=== PATIENT | female | born 1995 | race Caucasian/White ===

== ENCOUNTER → 2019-01-30 | Outpatient (REF) | payer OTHER ==
[2019-01-30 21:01] LABS: CHLAMYDIA DNA AMPLIFICATION NEGATIVE (NEGATIVE); GC DNA AMPLIFICATION NEGATIVE (NEGATIVE)
== END ==
LOC: M SFHCLERA 13:45
PROVIDERS: ATTEND Nurse Practitioner Family
DX: R30.0 Dysuria (principal)

== ENCOUNTER 2020-09-30 07:29 | Inpatient (IN) | payer OTHER ==
[2020-09-30] VITALS (14 sets, daily range): BP systolic 96–133; BP diastolic 50–71
[~2020-09-30] VITALS: Ht 162.6 cm; Wt 76.9 kg
--- OUTSIDE RECORDS SUMMARY | 2020-09-30 07:35 | CCD ---
Author Author [facility] Organization [facility] Address Unknown Phone Unavailable Care Team Providers Care Paid Search Manager Name Role Phone Yessy CALDWELL Unavailable Unavailable Trang PAC, Kenyon Unavailable Unavailable Lorman PAC, Kenyon Unavailable Unavailable Trang PAC, Kenyon Unavailable Unavailable Lorman PAC, Kenyon Unavailable Unavailable Lorman PAC, Kenyon Unavailable Unavailable Lorman PAC, Kenyon Unavailable Unavailable Lorman PAC, Kenyon Unavailable Unavailable Lorman PAC, Kenyon Unavailable Unavailable ABDALLA, W SHWETA PA Unavailable Unavailable ABDALLA, W SHWETA PA Unavailable Unavailable ABDALLA, W SHWETA PA Unavailable Unavailable ABDALLA, W SHWETA PA Unavailable Unavailable ABDALLA, W SHWETA PA Unavailable Unavailable ABDALLA, W SHWETA PA Unavailable Unavailable ABDALLA, W SHWETA PA Unavailable Unavailable ABDALLA, W SHWETA PA Unavailable Unavailable ABDALLA, W SHWETA PA Unavailable Unavailable ABDALLA, W SHWETA PA Unavailable Unavailable ABDALLA, W SHWETA PA Unavailable Unavailable ABDALLA, W SHWETA PA Unavailable Unavailable ABDALLA, W SHWETA PA Unavailable Unavailable ABDALLA, W SHWETA PA Unavailable Unavailable ABDALLA, W SHWETA PA Unavailable Unavailable ABDALLA, W SHWETA PA Unavailable Unavailable ABDALLA, W SHWETA PA Unavailable Unavailable ABDALLA, W SHWETA PA Unavailable Unavailable ABDALLA, W SHWETA PA Unavailable Unavailable ABDALLA, W SHWETA PA Unavailable Unavailable ABDALLA, W SHWETA PA Unavailable Unavailable ABDALLA, W SHWETA PA Unavailable Unavailable ABDALLA, W SHWETA PA Unavailable Unavailable ABDALLA, W SHWETA PA Unavailable Unavailable ADBALLA, W SHWETA PA Unavailable Unavailable ABDALLA, W SHWETA PA Unavailable Unavailable ABDALLA, W SHWETA PA Unavailable Unavailable ABDALLA, W SHWETA PA Unavailable Unavailable ABDALLA, W SHWETA PA Unavailable Unavailable ABDALLA, W SHWETA PA Unavailable Unavailable ABDALLA, W SHWETA PA Unavailable Unavailable ABDALLA, W SHWETA PA Unavailable Unavailable ABDALLA, W SHWETA PA Unavailable Unavailable ABDALLA, W SHWETA PA Unavailable Unavailable ABDALLA, W SHWETA PA Unavailable Unavailable ABDALLA, W SHWETA PA Unavailable Unavailable ABDALLA, W SHWETA PA Unavailable Unavailable ABDALLA, W SHWETA PA Unavailable Unavailable ABDALLA, W SHWETA PA Unavailable Unavailable ABDALLA, W SHWETA PA Unavailable Unavailable ABDALLA, W SHWETA PA Unavailable Unavailable ABDALLA, W SHWETA PA Unavailable Unavailable ABDALLA, W SHWETA PA Unavailable Unavailable ABDALLA, W SHWETA PA Unavailable Unavailable ABDALLA, W SHWETA PA Unavailable Unavailable ABDALLA, W SHWETA PA Unavailable Unavailable NONE SALES REPRESENTATIVE BUSINESS COURSES, MD ON NONE Unavailable Unavailable UNKNOWN, CLINIC MICHAELA Unavailable Unavailable MD DEMETRIO HAWTHORNE DO Unavailable Unavailable VENERUS, Viki CORDOVA MD Unavailable Unavailable VENERUS, Viki CORDOVA MD Unavailable Unavailable VENERUS, Viki CORDOVA MD Unavailable Unavailable VENERUS, Viki CORDOVA MD Unavailable Unavailable VENERUS, Viki CORDOVA MD Unavailable Unavailable VENERUS, Viki CORDOVA MD Unavailable Unavailable VENERUS, Viki CORDOVA MD Unavailable Unavailable VENERUS, Viki CORDOVA MD Unavailable Unavailable VENERUS, Viki CORDOVA MD Unavailable Unavailable Re-disclosure Warning The records that you are about to access may contain information from federally-assisted alcohol or drug abuse programs. If such information is present, then the following federally mandated warning applies: This information has been disclosed to you from records protected by federal confidentiality rules (42 CFR part 2). The federal rules prohibit you from making any further disclosure of this information unless further disclosure is expressly permitted by the written consent of the person to whom it pertains or as otherwise permitted by 42 CFR part 2. A general authorization for the release of medical or other information is NOT sufficient for this purpose. The Federal rules restrict any use of the information to criminally investigate or prosecute any alcohol or drug abuse patient.The records that you are about to access may contain highly sensitive health information, the redisclosure of which is protected by Article 27-F of the [facility] Public Health law. If you continue you may have access to information: Regarding HIV / AIDS; Provided by facilities licensed or operated by the [facility] Office of Mental Health; or Provided by the [facility] Office for People With Developmental Disabilities. If such information is present, then the following [facility] mandated warning applies: This information has been disclosed to you from confidential records which are protected by state law. State law prohibits you from making any further disclosure of this information without the specific written consent of the person to whom it pertains, or as otherwise permitted by law. Any unauthorized further disclosure in violation of state law may result in a fine or chcf sentence or both. A general authorization for the release of medical or other information is NOT sufficient authorization for further disc losure. Encounters Encounter Providers Location Date Indications Data Source(s ) Emergency Attender: DAYNA MURCIACOConsultant: MICHAELA UNKNOWN 08/02/2020 10:28:00 AM EST - 08/02/2020 01:04:00 PM EST [facility] Patient discharged. Emergency Attender: MD DEMETRIO HAWTHORNE DOAdmitter: MD DEMETRIO HAWTHORNE DOConsultant: NONE NONE SALES REPRESENTATIVE BUSINESS COURSES OP-EMERGENCY DEPARTMENT 07/23/2020 03:39:[address] - 07/23/2020 07:25:[address] [facility] Patient discharged. OutpatientOFFICE/OUTPATIENT VISIT, [facility] 07/15/2020 Attender: SHWETA THAO 07/15/2020 09:33:17 AM EST [facility] ([facility]) Outpatient Attender: Kenyon HACKETT 05/04 10:40:00 AM EDT - 05/17/2020 11:40:00 AM [facility] Emergency Attender: TASHA MOSS MD 05/05 11:04:00 AM EDT - 05/05/2020 01:22:00 PM [facility] Patient discharged. Outpatient 05/01/2020 12:08:00 PM EDT - 020 01:08:00 PM [facility] Medications Medication Brand Name Start Date Product Form Dose Route Admi nistrative Instructions Pharmacy Instructions Status Indications Reaction Description Data Source(s) 100 mg 07/15/2020 12:00:00 AM EST capsule 14 TAKE ONE CAPSULE BY MOUTH TWICE A DAY TAKE ONE CAPSULE BY MOUTH TWICE A DAY SOLD: 07/15/2020 [facility] No known medications 07/15/2020 12:00:00 AM EST completed No known medications [facility] ([facility]) NITROFURANTOIN, MACROCRYSTALS 25 MG / Ni trofurantoin, Monohydrate 75 MG Oral Capsule [Macrobid] Macrobid 100 mg capsule Macrobid 100 mg capsule 07/15/2020 12:00:00 AM EST 1 completed , Take 1 capsule orally Twice a day 07/15/2020 [facility] ([facility]) Insurance Providers Payer name Policy type / Coverage type Policy ID Covered constitution party ID Covered constitution party's relationship to arce Policy Arce Plan Information [facility] [employer] [id number] SP [id number] [facility] [employer] - O/P [id number] 18 [id number] SELF [id number] For Life [id number] Commercial Insurance [id number] ANSI-Not a Secondary Insurance [id number] Problems, Conditions, and Diagnoses Code Display Name Description Problem Type Effective Dates Data Source(s) R30.0 Dysuria Dysuria (R30.0) 07/15/2020 [id number] 0 09:33:17 AM EST [facility] ([facility]) N39.0 Urinary tract infection, site not specif ied Urinary tract infection, site not specified (N39.0) 07/15/2020 [id number] 07/15/2020 09:33:17 AM EST [facility] ([facility]) N91.2 Amenorrhea, unspecified Amenorrhea, unspecified (N91.2) 07/15/2020 [id number] 07/15/2020 09:33:17 AM EST [facility] ([facility]) [id number] Personal history of nicotine dependence Personal history of nicotine dependence Diagnosis 08/02/2020 10:28:00 AM [facility] [id number] Personal history of urinary (tract) infe ctions Personal history of urinary (tract) infections Diagnosis 08/02/2020 10:28:00 AM [facility] Z3A01 Less than 8 weeks gestation of Less than 8 weeks gestation of Diagnosis 08/02/2020 10:28:00 AM [facility] O200 Threatened Threatened Diagnosis 1 10:28:00 AM [facility] O209 Hemorrhage in early , unspecifi ed Hemorrhage in early , unspecified Diagnosis 08/02/2020 10:28:00 AM [facility] N83.202 UNSPECIFIED OVARIAN CYST LEFT SIDE UNSPECIFIED O VARIAN CYST, LEFT SIDE Diagnosis 08/01/2020 11:03:00 AM [facility] R10.2 Pelvic and perineal pain PELVIC AND PERINEAL PAIN Diag nosis 08/01/2020 11:03:00 AM [facility] [id number] Other sprain of left hip, initial encoun ter Other sprain of left hip, initial encounter Diagnosis 05/17/2020 10:40:00 AM EDT [facility] T75865 Pain in right hip Pain in right hip Diagnosis 05/17/2020 10:40:00 AM EDT [facility] Y9289 Other specified places as the place of o ccurrence of the external cause Other specified places as the place of occurrence of the external cause Diagnosis 05/05/2020 11:04:00 AM EDT [facility] [id number] Exposure to other specified factors, ini tial encounter Exposure to other specified factors, initial encounter Diagnosis 05/05/2020 11:04:00 AM EDT [facility] N3001 Acute cystitis with hematuria Acute cystitis with kan turia Diagnosis 05/05/2020 11:04:00 AM EDT [facility] [id number] Strain of adductor muscle, f ascia and tendon of right thigh, initial encounter Strain of adductor muscle, fascia and te ndon of right thigh, initial encounter Diagnosis 05/05/2020 11:04:00 AM EDT [facility] R99 Ill-defined and unknown cause of mortali ty Ill-defined and unknown cause of mortality Diagnosis 05/01/2020 12:08:00 PM EDT [facility] Surgeries/Procedures Procedure Description Date Indications Data Source(s) [facility] SCHEDD EVN WKEND/HOLIDAY HRS 2019 12:00:00 AM EST [facility] ([facility]) URINE TEST VISUAL COLOR CMPRSN METHS 020 12:00:00 AM EST [facility] ([facility]) URNLS DIP STICK/TABLET RGNT NON-AUTO W/O MICRSCP 07/15 12:00:00 AM EST [facility] ([facility]) Results ID Date Data Source [id number] 08/21/2020 09:12:00 AM [facility] [address] [place] [address] PHONE: [phone] FAX: [phone] Name .................. : REJI Monaco Acct Number.................. : [id number] ROOM. ................. : TR-04 MR Number ................... : [id number] Stay type ............. : E/R Discharge Date......... ... : 08/02/20 Admit Date ......... : 08/02/20 Admit Phys .................... : CHANLIECCO Date of ....... : 1995 Family Phys ................... : UNKNOWN CO Phone .................. : [phone] Age ................................ : 25 Film# .................. .:[id number] Sex ................................. : F Unsigned transcriptions are preliminary reports and do not represent a medical or legal document OB 1ST TRI UP TO 14 WEEKS [address]2073 COMPLETE:08/02/20 12:05 KNB 1133 Reason(s): pos HCG in ED, LNMP JUN 23- bleeding/cramping, ?ectopic OB SONOGRAM, 08/02/20: INDICATION: Cramping and bleeding. FINDINGS: Uterus measures 5.4 x 7.0 x 9.3 cm in size. Right ovary measures 2.8 x 3.1 x 2.0 cm. Left ovary measures 3.6 x 2.1 x 1.9 cm. A gestational sac is identified with a mean sac diameter of 0.57 cm. Corresponds to 5 weeks and 1 day +/- 1 week. No evidence of a pole or yolk sac is visualized on today's examination. There is a small amount of free fluid in the adnexal regions. IMPRESSION: Suspected gestational sac. No evidence of a pole or yolk sac is identified at this time. An ectopic cannot be completely excluded. Continued follow up with HCG and sonography is recommended. Examination dictated by KEESHA Johnson. Examination was reviewed with Chad Maurice MD, radiologist at the time of this dictation. Electronically Reviewed and Signed By CHAD MAURICE MD , 08/03/20 09:12, [facility] Transcribe Initials: SSR, Transcribe Date: 08/02/20 14:22, Dictation Date: Copy for: GLORIA Drew via fax Copy for: EMERGENCY DEPT via [facility] Copy for: 710 MED REC DISCHARGED Page 1 of 2 [place] [address] PHONE: [phone] FAX: [phone] Name .................. : REJI JOSLYN Carlos Enrique Acct Number.................. : [id number] ROOM. ................. : TR- 04 Number ................... : [id number] Stay type ............. : E/R Discharge Date......... ... : 08/02/20 Admit Date ......... : 08/02/20 Admit Phys .................... : CHANDELFINO Date of ....... : 1995 Family Phys ................... : UNKNOWN CO Phone .................. : [phone] Age ................................ : 25 Film# .................. .:[id number] Sex ................................. : F Unsigned transcriptions are preliminary reports and do not represent a medical or legal document US OB 1ST TRI UP TO 14 WEEKS [address]10 COMPLETE:08/02/20 12:05 KNB 1133 Reason(s): pos HCG in ED, LNMP JUN 23- bleeding/cramping, ?ectopic 08/18/20 ADDENDUM: Transabdominal and transvaginal pelvic sonogram is performed. Incidental note of corpus luteum measuring 1.4 x 1.3 x 1.3 cm. Examination dictated by KEESHA Johnson. Examination was reviewed with Chad Maurice MD, radiologist at the time of this dictation. Electronically Reviewed and Signed By CHAD MAURICE MD , 08/21/20 09:12, [facility] Transcribe Initials: LUIS E , Transcribe Date: 08/18/20 10:36, Dictation Date: Copy for: GLORIA Drew via fax Copy for: EMERGENCY DEPT via [facility] Copy for: 710 MED REC DISCHARGED Page 2 of 2 Name Value Range Interpretation Code Description Data Fariba rce(s) Supporting Document(s) ID Date Data Source [id number] 08/21/2020 09:12:00 AM EST [facility] [address] [place] [address] PHONE: [phone] FAX: [phone] Name .................. : REJI Monaco Acct Number.................. : [id number] ROOM. ................. : [facility] MR Number ................... : [id number] Stay type ............. : E/R Discharge Date......... ... : 08/02/20 Admit Date ......... : 08/02/20 Admit Phys .................... : [facility] Date of ....... : 1995 Family Phys ................... : UNKNOWN CO Phone .................. : [phone] Age ................................ : 25 Film# .................. .:[id number] Sex ................................. : F Unsigned transcriptions are preliminary reports and do not represent a medical or legal document OB 1ST TRI UP TO 14 WEEKS [address]80 COMPLETE:08/02/20 12:05 KNB 1133 Reason(s): pos HCG in ED, LNMP 16 JUN 23- bleeding/cramping, ?ectopic OB SONOGRAM, 08/02/20: INDICATION: Cramping and bleeding. FINDINGS: Uterus measures 5.4 x 7.0 x 9.3 cm in size. Right ovary measures 2.8 x 3.1 x 2.0 cm. Left ovary measures 3.6 x 2.1 x 1.9 cm. A gestational sac is identified with a mean sac diameter of 0.57 cm. Corresponds to 5 weeks and 1 day +/- 1 week. No evidence of a pole or yolk sac is visualized on today's examination. There is a small amount of free fluid in the adnexal regions. IMPRESSION: Suspected gestational sac. No evidence of a pole or yolk sac is identified at this time. An ectopic cannot be completely excluded. Continued follow up with HCG and sonography is recommended. Examination dictated by KEESHA Johnson. Examination was reviewed with Chad Maurice MD, radiologist at the time of this dictation. Electronically Reviewed and Signed By CHAD MAURICE MD , 08/03/20 09:12, [facility] Transcribe Initials: [facility], Transcribe Date: 08/02/20 14:22, Dictation Date: Copy for: GLORIA Drew via fax Copy for: EMERGENCY DEPT via [facility] Copy for: 710 MED REC DISCHARGED Page 1 of [address] [place] [address] PHONE: [phone] FAX: [phone] Name .................. : REJI Monaco Acct Number.................. : [id number] ROOM. ................. : TR- 04 Number ................... : [id number] Stay type ............. : E/R Discharge Date......... ... : 08/02/20 Admit Date ......... : 08/02/20 Admit Phys .................... : JAVI Date of ....... : 1995 Family Phys ................... : UNKNOWN CO Phone .................. : [phone] Age ................................ : 25 Film# .................. .:[id number] Sex ................................. : F Unsigned transcriptions are preliminary reports and do not represent a medical or legal document US OB 1ST TRI UP TO 14 WEEKS [address] COMPLETE:08/02/20 12:05 KNB 1133 Reason(s): pos HCG in ED, LNMP JUN 23- bleeding/cramping, ?ectopic 08/18/20 ADDENDUM: Transabdominal and transvaginal pelvic sonogram is performed. Incidental note of corpus luteum measuring 1.4 x 1.3 x 1.3 cm. Examination dictated by KEESHA Johnson. Examination was reviewed with Chad Maurice MD, radiologist at the time of this dictation. Electronically Reviewed and Signed By CHAD MAURICE MD , 08/21/20 09:12, [facility] Transcribe Initials: LUIS E Transcribe Date: 08/18/20 10:36, Dictation Date: Copy for: GLORIA Drew via fax Copy for: EMERGENCY DEPT via [facility] Copy for: 710 MED REC DISCHARGED Page 2 of 2 Name Value Range Interpretation Code Description Data Fariba rce(s) Supporting Document(s) ID Date Data Source [id number] 08/02/2020 10:28:00 AM EST [facility] 1 OrderSheet [facility] Emergency Department [address] [place] [address] Phone #: ext- [phone] 08/02/2020 10:23 Patient: JOSLYN MENDOZA Sex: F : 1995 Age: 25yWEIGHT:68.0 kg (S) HEIGHT:64 inches (S) BMI:25.8ALLERGIES: No Known Drug AllergyCHIEF COMPLAINT: vag bleedingDIAGNOSIS: Threatened abortionLAB ORDERSOrder Description Priority Entered Acknowledged InitialedBeta-HCG, Qual STAT 10:46 08/02/2020 10:56 Nelida Aden; Bianca RomanCBC w Diff STAT 10:46 08/02/2020 10:56 Jimbo HTAO; MarolfCMP STAT 10:46 08/02/2020 10:56 Jimbo THAO; MarolfLactic Acid STAT 10:46 08/02/2020 10:56 Jimbo THAO; MarolfUrinalysis (Clean STAT 10:46 08/02/2020 10:56 Keiko,Catch) Kranthi THAO; Bianca RomanType Rh STAT 10:50 08/02/2020 10:56 Jimbo THAO; MarolfBeta-HCG, Quant STAT 11:25 08/02/2020 11:26 DorisSerum Kranthi HTAO; Fred MARLOWDIAGNOSTIC STUDY ORDERSOrder Description Priority Entered Acknowledged InitialedUS OB 1ST TRI UP STAT 11:25 08/02/2020 11:26 DorisTO 14 WEEKS Kranthi THAO; Fred RN(Oxygen?(No))(IV?(No)) Reason for Study: pos HCG in ED, LNMP JUN 23- bleeding/cramping, ?ectopicMEDICATION/IV/DRIP/FLUID ORDERSOrder Description Priority Entered Acknowledged InitialedGENERAL ORDERSOrder Description Priority Entered Acknowledged InitialedNPO 10:46 08/02/2020 10:56 Jimbo THAO; Rajanf 2 OrderSheet [facility] Emergency Department [address] [place] [address] Phone #: ext- [phone] 08/02/2020 10:23 Patient: JOSLYN MENDOZA Sex: F : 1995 Age: 25yVitals 10:46 08/02/2020 10:56 Jimbo THAO; MarolfWarm blanket 10:46 08/02/2020 10:56 Jimbo THAO; MarolfSaline Lock 10:46 08/02/2020 11:04 Kranthi Aden; Bianca Roman[Electronically signed by Brissa Ibarra RN (13:08 08/02/2020)][Electronically signed by Kranthi Darby (13:54 08/02/2020)][Electronically locked by Brissa Ibarra RN (13:08 08/02/2020)] Name Value Range Interpretation Code Description Data Fariab rce(s) Supporting Document(s) ID Date Data Source [id number] 08/02/2020 10:28:00 AM EST [facility] 1 Medication Reconciliation Report [facility] Emergency Department [address] [place] [address] Phone #: ext- [phone] 08/02/2020 10:23 Patient: JOSLYN MENDOZA Sex: F : 1995 Age: 25yWeight: 68.0 kgHeight/Length: 64 in.BMI: 25.8ALLERGIES: No Known Drug AllergyThe patient's Home Medications are listed below:NONE.The source(s) of the original Home Medication information:patientThe following Medications were given to the patient in the Emergency Department:None.The following Medications were prescribed to the patient:PreNata 29 mg iron-1 mg chewable tablet Take 1 tablet once a day for 30 days -- Dispense 30 tablet.Refills: 0. Substitution permitted.Pharmacy - [facility] - [id number] ; [place] [address]. . -- KEESHA Ram Name Value Range Interpretation Code Description Data [facility] Document(s) ID Date Data Source [id number] 08/02/2020 10:28:00 AM [place] [address] Medication Administration Record [facility] Emergency Department [address] [place] [address] Phone #: ext- [phone] 10:23 Patient: JOSLYN MENDOZA Sex: F : 1995 Age: 25yWeight: 68.0 kgHeight/Length: 64 inBMI: 25.8ALLERGIES: No Known Drug AllergyDate/Time Medication Administered Medication Ordered Name Value Range Interpretation Code Description Data [facility](s) Supporting Document(s) ID Date Data Source [id number] 08/02/2020 10:28:00 AM [place] [address] General Instructions [facility] Emergency Department [address] [place] [address] Phone #: ext [phone] 08/02/2020 10:23 Patient: JOSLYN MENDOZA Sex: F : 1995 Age: 25yThreatened ; positive test in emergency department. (v. ectopic ).INSTRUCTIONSNo strenuous activity until better. Rest at home for one days.Drink plenty of fluids for the next 48 hours as needed. No sexual contact until symptoms resolve. Do notsmoke. No alcohol.Warnings: Further evaluation is necessary in order to conduct further tests and assess the possibility ofserious illness. It is very important to follow up with a healthcare provider.GENERAL WARNINGS: Return or contact your physician immediately if your condition worsens orchanges unexpectedly, if not improving as expected, or if other problems arise. Specifically return if pain,v omiting, bleeding, breathing difficulty or fever.Your Current Medications: .No home medication.Prescription Medications:PreNata 29 mg iron-1 mg chewable tablet Take 1 tablet once a day for 30 days -- Dispense 30 tablet.Refills: 0. Substitution permitted.Pharmacy - [facility] - [id number] [facility] [address] ; [place] [address]. .Understanding of the discharge instructions verbalized by patient. Expected course of illness, dischargeinstructions, follow-up appointment and risks and benefits of treatment reviewed with patient andunderstanding verbalized. Agrees to plan of care.Follow-up with: [facility], , , [address], , [place], [address] Follow up in one day. Call for the next available appointment. Reason for referral: pt needs repeat BHCG levels x 48 hrs, possible repeat OB US to determine threatened AB, v. ectopic , [facility] Summary of care provided to patient via paper. ADDITIONAL INFORMATIONAbdominal Pain and Early 2 General Instructions [facility] Emergency Department [address] [place] [address] Phone #: ext- [phone] 08/02/2020 10:23 Patient: JOSLYN MENDOZA Sex: F : 1995 Age: 25yThe tests you had show that you are , but the exact cause of your pain isn't clear.Some pain and bleeding are common early in . Often they stop, and you can go on to havea normal and baby. Other times the pain or bleeding can be signs ofa miscarriage or ectopic . An ectopic is a very serious problem. At this time it isunclear if your will continue normally, if you will have a miscarriage, or if you could have anectopic . Below is some information about this.MiscarriageAt this time we don't know whether you will have a miscarriage, or if things will clear up and yourpregnancy will continue normally. We understand that this is emotionally difficult. There is little we cansay to change the way you feel. But understand that miscarriages are common.About 1 or 2 out of every [address] Some end even before you know you are. This happens for a number of reasons, and usually we never figure out why. It's importantyou know that it is not your fault. It didn't happen because you did anything wrong.Having sex or exercising does not cause a miscarriage. These activities are usually safe unless youhave pain or bleeding or your healthcare provider tells you to stop. Even minor falls won't cause amiscarriage. Miscarriages happen because things were not developing as they were supposed to. Nomedicine can prevent a miscarriage.Ectopic pregnancyIn a normal , the fertilized egg attaches to the wall of the womb (uterus). In an ectopic ortubal , the fertilized egg attaches outside the uterus, usually in the fallopian tube. Veryrarely, the egg attaches to an ovary or somewhere else in the abdomen. An ectopic is 3 General Instructions [facility] Emergency Department [address] [place] [address] Phone #: ext- [phone] 08/02/2020 10:23 Patient: JOSLYN MENDOZA Sex: F : 1995 Age: 25ymuch less common than a miscarriage, but it is very serious. The baby can't survive, and as it growsit can rupture the tube. This can cause i nternal bleeding and even . Risk factors for an ectopicare: An ectopic in the past Pelvic inflammatory disease (PID) Endometriosis Smoking An IUDAdditional testsBecause we don't know what's causing your symptoms, you will need more tests to figure out whatthe problem is. You may need the following.UltrasoundAn ultrasound can usually find a normal as early as 4 to 5 weeks along. If the ultrasounddoes not show the baby inside the uterus, it means one of the following. You have a normal less than 4 weeks along You are having or recently had a miscarriage You have an ectopic pregnancyQuantitative HCGThis test measures the amount of a hormone in your blood. Comparing today's test resultto a repeat test in 2 days will show whether you have a normal .LaparoscopyThis is a type of surgery. The healthcare provider will put a tube with a light inside your belly(abdomen) to look directly at your pelvic organs. This test is used when it is not safe to wait 2 days forblood test results.Important informationIf you do have an ectopic , there is a small chance that the growing fetus can tear thefallopian tube. This can cause severe internal bleeding. If this happens, you may have: Sudden severe pain in your lower abdomen 4 General Instructions [facility] Emergency Department [address] [place] [address] Phone #: ext- [phone] 08/02/2020 10:23 Patient: JOSLYN MENDOZA Sex: F : 1995 Age: 25y Vaginal bleeding Weakness, dizziness, and sometimes faintingIf any of these symptoms occur: Call 911or return right away to the hospital. Don't drive yourself. Don't go to your healthcare provider's office or to a clinic. Go to the hospital.Home careFollow these guidelines to help care for yourself at home: Rest until your next exam. Don't do anything strenuous. Eat a light diet with foods that are easy to digest. Don't have sex until your healthcare provider says it's OK.Follow-up careFollow up with your healthcare provider, or as advised. If you were told to have a repeat blood test in2 days, it's important to get it done.If you had an X-ray or ultrasound, a radiologist will review it. You will be told of any new findings thatmay affect your care.Call [phone] if you have any of these: Severe pain and very heavy bleeding Severe lightheadedness, passing out, or fainting Rapid heart rate Trouble breathing Confused or difficulty waking upWhen to seek medical adviceCall your healthcare provider right away if any of these occur: The pain in your abdomen gets worse, either suddenly or gradually. 5 General Instructions [facility] Emergency Department [address] [place] [address] Phone #: ext- [phone] 08/02/2020 10:23 Patient: JOSLYN MENDOZA Sex: F : 1995 Age: 25y You are dizzy or weak when you stand. You have heavy vaginal bleeding. This means soaking 1 pad an hour for 3 hours. You have vaginal bleeding for more than 5 days. You have repeated vomiting or diarrhea. The pain in your abdomen moves to the lower right. You have blood in your vomit or bowel movements. This will be dark red or black. You have a fever of 100.4F (38C) or higher, or as directed by your healthcare provider. The [employer]. [address] [place] [address], [place] [address]. All rights reserved. This information is not intended as asubstitute for professional medical care. Always follow your healthcare professional's instructions. You have been given the following additional information: Abdominal Pain, Early No strenuous activity until better. Rest at home for one days.(Electronically signed by KEESHA Ram 08/02/2020 13:54) Name Value Range Interpretation Code Description Data Fariba rce(s) Supporting Document(s) ID Date Data Source [id number] 08/02/2020 10:28:00 AM EST [facility] 1 Clinical Report - Nurses [facility] Emergency Department [address] [place] [address] Phone #: [phone] [phone] 08/02/2020 10:23 Patient: JOSLYN MENDOZA Sex: F : 1995 Age: 25yTRIAGEArrived by private vehicle. Historian: patient. Unaccompanied. ( Pts LMP was Jun 19. Pt has taken ahome test and it was positive as of yesterday. Pt has had some cramping and spotting of darkred blood. Pt is a .).Triage time: late entry - 10:23 08/02/2020. Acuity: LEVEL 4.Chief Complaint: VAGINAL BLEED.Alert. No acute distress.This started today.Treatment [employer]:None.SEPSIS SCREEN: SIRS SCREEN NEGATIVE. SEPSIS SCREEN NEGATIVE. No suspected or confirmedsigns of infection present. --10:36 08/02/20 Bianca Aden R.N.10:26 08/02/20. BP: 124/67. MAP: 86. HR: 64. RR: 16. O2 saturation: 100% on room air. Pain level now:09/13. --10:36 08/02/20 Bianca Aden R.N.10:37 08/02/20. Temp: 98.3 F. --10:37 08/02/20 Bianca Aden R.N.Weight: 68 kg stated. Height/Length: 64 inches Per Patient. BMI: 25.8. --10:23 08/02/20 Bianca Aden R.N.MedicationsNone. --10:33 08/02/20 Bianca Aden R.N.AllergiesNo Known Drug Allergy. --10:33 08/02/20 Bianca Aden R.N.Medication/allergy information source: the patient. --10:36 08/02/20 Bianca Aden R.N.HistoryPAST MEDICAL HX: Immunizations: up-to-date. Last normal menstrual period- Jun 19.SOCIAL HX: Former smoker. Occasional alcohol use. No drug use. The patient was offered HIVtesting but declined. Patient education was provided. The patient was offered hepatitis C testing butdeclined. Patient education was provided. The patient has not traveled outside the [place]Infectious disease exposure: No infectious disease exposure. (COVID screen negative). Patient is not aknown carrier of tuberculosis, hepatitis, HIV, MRSA or VRE. Patient is not a known carrier of CRE. 2 Clinical Report - Nurses [facility] Emergency Department [address] [place] [address] Phone #: ext- [phone] 08/02/2020 10:23 Patient: JOSLYN MENDOZA Sex: F : 1995 Age: 25y SELF HARM ASSESSMENT: Self harm assessment was performed. The patient answered "no" to the question(s) "Do you have thoughts of harming or killing yourself?", "Do you have a plan for harming or killing yourself?" and "Have you recently had thoughts about harming or killing others?". ABUSE ASSESSMENT: Abuse assessment. The patient had positive responses to the question(s) "Do you feel safe in your home?" (yes). Abuse denied. No suspicion of abuse. No report of abuse. NUTRITIONAL RISK ASSESSMENT: The nutritional risk assessment revealed no deficiencies. FUNCTIONAL ASSESSMENT: Functional assessment: no impairments noted. LEARNING NEEDS ASSESSMENT: The learning needs assessment revealed no barriers. FALL RISK ASSESSMENT: Fall risk assessment completed. No risk factors identified. SKIN INTEGRITY ASSESSMENT: Skin integrity risk assessment completed. No skin integrity risk identified. --10:36 08/02/20 Bianca Aden R.N. Interventions Identification band on patient. --10:36 08/02/20 Bianca Aden R.N.PHYSICAL [id number] 08/02/20. Ambulatory to room.GENERAL / NEURO / PSYCH: Alert. Oriented X 4. Appears in no acute distress.HEENT: Mucous membranes are pink.RESPIRATORY: Respirations not labored.CVS: Normal heart rate and rhythm.GI / : Abdomen soft and nontender. Bowel sounds within normal limits. Vaginal bleeding present,consisting of dark blood (1 pad today).SKIN: Skin is warm and dry. --10:39 08/02/20 Brissa Ibarra RN.NURSING PROGRESS NOTESReassurance given. Three patient identifiers checked. Call light placed in reach. Side rails up x 2. Bedplaced in lowest position. Brakes of bed on. Patient ready for evaluation- ED physician and PA notified.--10:38 08/02/20 Bianca Aden R.N. 10:45 08/02/20. Patient ID band checked for patient name and birthdate: patient confirmed. Instructions provided to collect clean catch urine and patient verbalized understanding. Clean catch urine collected with return of yellow-colored clear urine; sample sent to lab for urinalysis. Specimen labeled in the presence of the patient. --11:58 08/02/20 Brissa Ibarra RN 11:04 08/02/2020 Site #1 started via IV in the right antecubital space with an 20g angiocath, with aseptic technique and good blood return; one attempt. Saline lock flushed with 10 mL saline. --11:04 08/02/20 3 Clinical Report - Nurses [facility] Emergency Department [address] [place] [address] Phone #: ext- [phone] 08/02/2020 10:23 Patient: JOSLYN MENDOZA Sex: F : 1995 Age: 25y Bianca Aden R.N. 11:30 08/02/20. [facility]. --11:58 08/02/20 Brissa Ibarra RN 11:58 08/02/20. Patient returned from sonogram by wheelchair with edger technician. --11:58 08/02/20 Brissa Ibarra RN.DISPOSITION / DISCHARGE 13:00 08/02/20. BP: 126/77. MAP: 93. HR: 59. RR: 14. O2 saturation: 100%. Temp: 97.9 F. Pain level now: 010. --13:06 08/02/20 Brissa Ibarra RN 13:02 08/02/2020 Site #1 removed upon discharge. Catheter intact. Manual pressure and bandage applied. --13:07 08/02/20 Brissa Ibarra RN 13:04 08/02/20. Condition at departure: improved and stable. No learning barriers present. Discharge instructions provided and reviewed with the patient. Activity restrictions reviewed (pelvic rest until symptoms resolve). Work note given (off x 1 day). Patient verbalized understanding. Written instructions provided in Chadian. The patient was discharged home. She left ambulatory and via private vehicle. Patient driving. --13:06 08/02/20 Brissa Ibarra RN.Locked/Released at 08/02/2020 13:08 by Brissa Ibarra RN Name Value Range Interpretation Code Description Data Fariba rce(s) Supporting Document(s) ID Date Data Source [id number] 08/02/2020 10:28:00 AM [facility] 1 Clinical Report - Physicians/Mid Levels [facility] Emergency Department [address] [place] [address] Phone #: ext- [phone] 08/02/2020 10:23 Patient: JOSLYN MENDOZA Sex: F : 1995 Age: 25y Time Seen: 10:45 08/02/2020. Arrived- By private vehicle. Historian- patient. Disposition decision: 12:33 08/02/2020.HISTORY OF PRESENT ILLNESS Chief Complaint: VAGINAL BLEEDING. This started yesterday. She has had pelvic pain and mild vaginal bleeding. No complaint of leakage of fluid or vaginal discharge. Last normal menstrual period- 19 Jun 2020. (Pt states she had positive home test yesterday, today with spotting and mil dark vaginal bleeding, lower abdominal pain described as cramping.). Similar symptoms previously. None. Recent medical care: Not recently seen/assessed.REVIEW OF SYSTEMSNo nausea, vomiting, diarrhea, black stools or bloody stools. No headache, double vision, faintingepisodes, fever or eye discomfort. No eye discharge, sore throat, cough, difficulty breathing or chest pain.No skin rash, enlarged lymph nodes, chills or joint pain.PAST HISTORYSee nurses notes. G 3; P 0. Problems: Hip pain. Muscle Strain, Lower Extremity. UTI - Urinary Tract Infection. Medications: None. Allergies: No Known Drug Allergy.SOCIAL HISTORYFormer smoker. Occasional alcohol use. No drug use. No recent travel.ADDITIONAL NOTESThe nursing notes have been reviewed with agreement regarding the chief complaint, HPI, ROS, PMH andpatient medications and allergie s. 2 Clinical Report - Physicians/Mid Levels [facility] Emergency Department [address] [place] [address] Phone #: ext- [phone] 08/02/2020 10:23 Patient: JOSLYN MENDOZA Sex: F : 1995 Age: 25yPHYSICAL EXAMVital Signs: 08/02/2020 10:37 Temp: 98.3 F.08/02/2020 10:26 BP: 124/67. MAP: 86. HR: 64. RR: 16. O2 saturation: 100% on room air. Pain level now:09/13. Have been reviewed as normal and appear to be correct. Blood pressure normal. Mean arterialpressure- normal. Heart rate normal. Respiratory rate normal. Temperature normal. Oxygensaturation normal.Appearance: Alert. Oriented X3. No acute distress.HEENT: Normal external inspection.ENT: Pharynx normal.Neck: Neck supple.CVS: Heart sounds normal.Respiratory: No respiratory distress. Painless inspiration. Breath sounds normal. Chest nontender.Abdomen: Soft and nontender. Bowel sounds normal. No organomegaly. No mass.Back: Normal external inspection.Skin: Skin warm and dry. Normal skin color. No rash. Normal skin turgor.Extremities: Extremities nontender. No pathologic edema.Neuro: Oriented X 3. Mood/affect normal. No motor deficit. No sensory deficit. Reflexes normal.LABS, X-RAYS, AND EKGPelvic Sonogram: OB US- thickened endometrium measuring 3.7 cm. ).5 cm hypoechoic area within theendometrium that may be a gestational sac but no pole or yolk sac is seen. Sonographic EGA of 5wks 3 days. No areas of hemorrhage. Ovaries unremarkable. No adnexal mass. Trace amount free fluid [id number]. Suggest correlation with beta hCG levels and f/u US to assure that a pole develops and toexclude ectopic or spontaneous . Study type: obstetrical evaluation. The study wasindependently viewed by me and interpreted by the radiologist and contemporaneously by me.Interpretation time: 12:38 08/02/2020.Laboratory Tests: Laboratory tests have been ordered, with results reviewed and considered in themedical decision making process. US OB TRANSVAGINAL SOLOMON: (PHIL: 08/02/2020 11:44) ( Mscvd 08/02/2020 12:05) In Progress US TRANSVAGINAL SOLOMON REASON FOR OBS: cramping/bleeding TRANSPORTATION: W IV? N O2? N STATUS: PREG: YES ISOLATION n Beta-HCG, Quant Serum: (PHIL: 08/02/2020 10:52) ( MsgRcvd 08/02/2020 12:28) Final results Test Result Flag Units (Reference) HCG QUANT 2396.0 mIU/mL Interpretation: Less than 5 mU/mL: Negative 6-10 mU/mL: Borderline (suggest repeat in 48 hours) >10: Positive Approx HCG range (mU/mL) Weeks post LMP 5.4-708 mU/mL 3-4 Weeks 217-43267 mU/mL 5-6 Weeks 4059-318674 mU/mL 7-8 Weeks 49099-022245 mU/mL 9-10 Weeks 15763-66110 mU/mL 12-14 Weeks 05325-71263 mU/mL 15-16 Weeks 8240-53657 mU/mL 17-18 Weeks US OB 1ST TRI UP TO 14 WEEKS: (PHIL: 08/02/2020 11:25) ( MsgRcvd 08/02/2020 12:05) In Progress OB 1ST TRI UP TO 14 WEEKS 3 Clinical Report - Physicians/Mid Levels [facility] Emergency Department [address] [place] [address] Phone #: [phone]- [phone] 08/02/2020 10:23 Patient: JOSLYN MENDOZA Sex: F : 1995 Age: 25yReason(s): pos HCG in ED, LNMP JUN 23- bleeding/cramping, ?ectopicTRANSPORTATION: WC IV? IV?(No) O2? Oxygen?(No) RooType Rh: (PHIL: 08/02/2020 10:52) ( MsgRcvd 08/02/2020 11:59) Final results Test Result Flag Units (Reference) ABO GROUP O RH TYPE POSITIVE { ABO/RH REENTER O POSITIVEBeta-HCG, Qual Urine: (PHIL: 08/02/2020 10:45) ( MsgRcvd 08/02/2020 11:06) Final results Test Result Flag Units (Reference) HCG URINE QUAL POSITIVE (NORMAL: NEGAT HCG URINE QL REENTER POSITIVE (NORMAL: NEGAT { KIT LOT # [id number] ){ KIT EXP DATE05/09/21 ){ PROCEDURAL CONTROL VALID)CBC w Diff: (PHIL: 08/02/2020 10:52) ( MsgRcvd 08/02/2020 11:08) Final results Test Result Flag Units (Reference) CBC W/AUTOMATED DIFF COMPLETE BLOOD COUNT WBC 5.0 10/uL (4.2 - 11.0) RBC 4.49 10/uL (4.20 - 5.40) HEMOGLOBIN 13.3 g/dL (12.0 - 16.0) HEMATOCRIT 39.9 % (37.0 - 47.0) MCV 88.9 fL (81.0 - 101) MCH 29.6 pg (27.0 - 34.0) MCHC 33.3 g/dL (31.0 - 36.0) RDW 12.1 % (11.5 - 14.5) PLATELETS 282 10/uL (150 - 450) MPV 10.1 fL (7.4 - 10.4) NEUT 53.2 % (37.0 - 80.0) LYMPH 34.3 % (25.0 - 40.0) MONO 10.3 H % (3.0 - 8.0) EOS 1.2 % (0.0 - 7.0) BASO 0.6 % (0.0 - 2.5) %IG 0.4 H % (0.0 - 0.0) %NRBC 0.0 % (0.0 - 0.0) #NEUT 2.68 10/uL (2.00 - 6.90) #LYMPH 1.73 10/uL (0.60 - 3.40) #MONO 0.52 10/uL (0.00 - 0.90) #EOS 0.06 10/uL (0.00 - 0.70) #BASO 0.03 10/uL (0.00 - 0.20) #IG 0.02 10/uL (0.00 - 0.10) #NRBC 0.00 10/uL (0.00 - 0.00) MANUAL DIFF NOT INDICATED RBC MORPH NOT INDICATEDCMP: (PHIL: 08/02/2020 10:52) ( MsgRcvd 08/02/2020 12:10) Final results Test Result Flag Units (Reference) COMPREHENSIVE METABOLIC PANEL COMPREHENSIVE METABOLIC PANEL SODIUM 135 mEq/L (134 - 153) 4 Clinical Report - Physicians/Mid Levels [facility] Emergency Department [address] [place] [address] Phone #: ext- [phone] 08/02/2020 10:23 Patient: JOSLYN MENDOZA Sex: F : 1995 Age: 25y POTASSIUM 4.2 mEq/L (3.6 - 5.0) CHLORIDE 100 mEq/L (98 - 107) CO2 27 MEQ/L (22 - 30) GLUCOSE 76 MG/DL (65 - 110) BUN 11 MG/DL (7 - 21) CREATININE 0.6 L MG/DL (0.7 - 1.5) BUN/CREAT 18 (8 - 27) TOTAL PROTEIN 7.6 G/DL (6.3 - 8.2) ALBUMIN 4.3 G/DL (3.9 - 5.0) GLOBULIN 3.3 H GM/DL (2.4 - 3.2) A/G RATIO 1.3 (0.8 - 2.0) CALCIUM 9.6 MG/DL (8.4 - 10.2) TOTAL BILI <0.7 MG/DL (0.2 - 1.3) ALKALINE PHOS 45 U/L (38 - 126) SGOT/AST 17 U/L (5 - 40) SGPT/ALT 8 U/L (7 - 56) ANION GAP 8.0 mmol/L (8.0 - 16.0) AGE 25 yrs NON-AA GFR >60 mL/min AFR AMER GFR >60 mL/min Male GFR Interprentation 20-49 yrs >60 mL/min Normal 50-59 yrs >56 mL/min Normal 60-69 yrs >49 mL/min Normal 70-79yrs >42 mL/min Normal 80 and above >35 mL/min Normal Female GFR Interpretation 20-39 yrs >60 mL/min Normal 40-49 yrs >58 mL/min Normal 50-59 yrs >51 mL/min Normal 60-69 yrs >45 mL/min Normal 70-79 yrs >39 mL/min Normal 80 and above >32 mL/min Normal Lactic Acid: (PHIL: 08/02/2020 10:52) ( [facility] [place] 12:13[place] Final results Test Result Flag Units (Reference) LACTIC ACID 1.2 MMOL/L (0.2 - 2.2) Urinalysis: (PHIL: 08/02/2020 10:45) ( [facility] 08/02/[place] 11:05) Final results Test Result Flag Units (Reference) URINALYSIS URINALYSIS SOURCE Clean Catch COLOR yellow (NORMAL: Yello CLARITY clear (NORMAL: Clear SPEC GRAVITY 1.010 (1.001 - 1.030 pH 6.5 (5 - 9) GLUCOSE NORM (NORMAL: Negat BILIRUBIN NEG (NORMAL: Negat KETONE NEG (NORMAL: Negat PROTEIN NEG (NORMAL: Negat NITRITE NEG (NORMAL: Negat BLOOD 150 A (NORMAL: Negat LEUK EST NEG (NORMAL: Negat UROBILINOGEN NOR (less than 1.0 MICROSCOPIC See Below WBC 0 - 1 (NORMAL: NONE RBC 1 - 3 (NORMAL: NONE EPITHELIAL MANY A (NORMAL: NONE.PROGRESS AND PROCEDURES 5 Clinical Report - Physicians/Mid Levels [facility] Emergency Department [address] [place] [address] Phone #: ext- [phone] 08/02/2020 10:23 Patient: JOSLYN MENDOZA Sex: F : 1995 Age: 25y Course of Care: 11:27 Aug 02 2020. Awaiting OB US results. 13:52 Aug 02 2020. Pt advised f/u with OB at [facility] to have f/u US until ectopic /threatened ab, ruled out also repeat B hCG levels in 48 hrs, states understanding of possible dx's and will f/u as instructed, advised return precautions. Disposition: Discharged home in good and improved condition. Discharge decision based on the following: patient's condition is stable; patient's condition is improved; patient is ambulatory; patient is active; patient's exam is improved; minimally abnormal test results; improving condition on repeat evaluation; social support is adequate; transportation is available; follow-up is available; clinical impression is consistent with outpatient treatment.CLINICAL IMPRESSION Threatened ; positive test in emergency department. (v. ectopic ).INSTRUCTIONS No strenuous activity until better. Rest at home for one days. Drink plenty of fluids for the next 48 hours as needed. No sexual contact until symptoms resolve. Do not smoke. No alcohol. Warnings: Further evaluation is necessary in order to conduct further tests and assess the possibility of serious illness. It is very important to follow up with a healthcare provider. GENERAL WARNINGS: Return or contact your physician immediately if your condition worsens or changes unexpectedly, if not improving as expected, or if other problems arise. Specifically return if pain, vomiting, bleeding, breathing difficulty or fever. Your Current Medications: . No home medication. Prescription Medications: PreNata 29 mg iron-1 mg chewable tablet Take 1 tablet once a day for 30 days -- Dispense 30 tablet. Refills: 0. Substitution permitted. Pharmacy - [facility] - [id number] [facility] ; [place] [address]. . Understanding of the discharge instructions verbalized by patient. Expected course of illness, discharge instructions, follow-up appointment and risks and benefits of treatment reviewed with patient and understanding verbalized. Agrees to plan of care. [facility] with: [facility], , , Building [id number] 9 Clinical Report - Physicians/Mid Levels [facility] Emergency Department [address] [place] [address] Phone #: ext- [phone] 08/02/2020 10:23 Patient: JOSLYN MENDOZA Sex: F : 1995 Age: 25y [facility], , [place], [address] Follow up in one day. Call for the next available appointment. Reason for referral: pt needs repeat B HCG levels x 48 hrs, possible repeat OB US to determine threatened AB, v. ectopic , please refer to [facility] OB for appropriate f/u.. Summary of care provided to patient via paper.(Electronically signed by KEESHA Ram 08/02/2020 13:54) Name Value Range Interpretation Code Description Data Fariba rce(s) Supporting Document(s) ID Date Data Source [id number] 08/02/2020 12:27:00 PM [facility] Name Value Range Interpretation Code Description Data Fariba rce(s) Supporting Document(s) Choriogonadotropin.intact [Units/volume] in Serum or Plasma 2396.0 mI U/mL [facility] Interpr etation: Less than 5 mU/mL: Negative 6-10 mU/mL: Borderline (suggest repeat in 48 hours) >10: Positive Approx HCG range (mU/mL) Weeks post LMP 5.4-708 mU/mL 3-4 Weeks 217-93285 mU/mL 5-6 Weeks 4059-564744 mU/mL 7-8 Weeks 84977-998140 mU/mL 9-10 Weeks 28467-90836 mU/mL 12-14 Weeks 68809-90453 mU/mL 15-16 Weeks 8240- 76138 mU/mL 17-18 Weeks ID Date Data Source [id number] 08/02/2020 12:13:00 PM [facility] Name Value Range Interpretation Code Description Data Fariba rce(s) Supporting Document(s) Lactate [Moles/volume] in Serum or Plasma 1.2 MMOL/L 0.2 - 2.2 [facility] ID Date Data Source [id number] 08/02/2020 12:09:00 PM [facility] Name Value Range Interpretation Code Description Data Fariba rce(s) Supporting Document(s) COMPREHENSIVE METABOLIC PANEL [facility] COMPREHENSIVE METABOLIC PANEL Sodium [Moles/volume] in Serum or Plasma 135 mEq/L 134 - 153 [facility] Potassium [Moles/volume] in Serum or Plasma 4.2 mEq/L 3.6 - 5.0 [facility] Chloride [Moles/volume] in Serum or Plasma 100 mEq/L 98 - 107 [facility] Carbon dioxide, total [Moles/volume] in Serum or Plasma 27 MEQ/L 22 - 30 [facility] Glucose [Mass/volume] in Serum or Plasma 76 MG/DL 65 - 110 [facility] BUN 11 MG/DL 7 - 21 [facility] al Creatinine [Mass/volume] in Serum or Plasma 0.6 MG/DL 0.7 - 1.5 L [facility] BUN/CREAT 18 8 - 27 [facility] Protein [Mass/volume] in Serum or Plasma 7.6 G/DL 6.3 - 8.2 [facility] Albumin [Mass/volume] in Serum or Plasma 4.3 G/DL 3.9 - 5.0 [facility] Globulin [Mass/volume] in Serum by calculation 3.3 GM/DL 2.4 - 3.2 H [facility] A/G RATIO 1.3 0.8 - 2.0 [facility] Calcium [Mass/volume] in Serum or Plasma 9.6 MG/DL 8.4 - 10.2 [facility] Bilirubin.total [Mass/volume] in Serum or Plasma <0.7 MG/DL 0.2 - 1.3 [facility] Alkaline phosphatase [Enzymatic activity/volume] in Serum or Plasma 45 U/L 38 - 126 [facility] Aspartate aminotransferase [Enzymatic activity/volume] in Serum or Plasma 17 U/L 5 - 40 [facility] Alanine aminotransferase [Enzymatic activity/volume] in Seru m or Plasma 8 U/L 7 - 56 [facility] Anion gap 3 in Serum or Plasma 8.0 mmol/L 8.0 - 16.0 [facility] AGE 25 yrs [facility] al NON-AA GFR >60 mL/min [facility] ital AFR AMER GFR >60 mL/min [facility] spital Male GFR In terprentation 20-49 yrs >60 mL/min Normal 50-59 yrs >56 mL/min Normal 60-69 yrs >49 mL/min Normal 70-79yrs >42 mL/min Normal 80 and above >35 mL/min Normal Female GFR Interpretation 20-39 yrs >60 mL/min Normal 40-49 yrs >58 mL/min Normal 50-59 yrs >51 mL/min Normal 60-69 yrs >45 mL/min Normal 70-79 yrs >39 mL/min Normal 80 and above >32 mL/min Normal ID Date Data Source [id number] 08/02/2020 11:58:00 AM [facility] Name Value Range Interpretation Code Description Data Fariba rce(s) Supporting Document(s) ABO group [Type] in Blood O [facility] Rh [Type] in Blood POSITIVE [facility] { ABO/RH REENTER O POSITIVE ID Date Data Source [id number] 08/02/2020 11:08:00 AM [facility] Name Value Range Interpretation Code Description Data Fariba rce(s) Supporting Document(s) CBC W/AUTOMATED DIFF [facility] COMPLETE BLOOD COUNT Leukocytes [#/volume] in Blood by Automated count 5.0 10^3/uL 4.2 - 1 1.0 [facility] Erythrocytes [#/volume] in Blood by Automated count 4.49 10^6/uL 4. 20 - 5.40 [facility] Hemoglobin [Mass/volume] in Blood 13.3 g/dL 12.0 - 16.0 [facility] Hematocrit [Volume Fraction] of Blood by Automated count 39.9 % 3 7.0 - 47.0 [facility] Erythrocyte mean corpuscular volume [Entitic volume] by Auto mated count 88.9 fL 81.0 - 101 [facility] Erythrocyte mean corpuscular hemoglobin [Entitic mass] by Automated count 29.6 pg 27.0 - 34.0 [facility] Erythrocyte mean corpuscular hemoglobin concentration [Mass/volume] by Automated count 33.3 g/dL 31.0 - 36.0 [facility] Erythrocyte distribution width [Ratio] by Automated count 12.1 % 11.5 - 14.5 [facility] Platelets [#/volume] in Blood by Automated count 282 10^3/uL 150 - 45 0 [facility] Platelet mean volume [Entitic volume] in Blood by Automated count 10.1 fL 7.4 - 10.4 [facility] Neutrophils/100 leukocytes in Blood by Automated count 53.2 % 37. 0 - 80.0 [facility] Lymphocytes/100 leukocytes in Blood by Manual count 34.3 % 25.0 - 40.0 [facility] Monocytes/100 leukocytes in Blood by Automated count 10.3 % 3.0 - 8.0 H [facility] Eosinophils/100 leukocytes in Blood by Automated count 1.2 % 0.0 - 7.0 [facility] Basophils/100 leukocytes in Blood by Automated count 0.6 % 0.0 - 2.5 [facility] %IG 0.4 % 0.0 - 0.0 [facility] %[facility]BC 0.0 % 0.0 - 0.0 [facility] al Neutrophils [#/volume] in Blood by Automated count 2.68 10^3/uL 2.00 - 6.90 [facility] Lymphocytes [#/volume] in Blood by Automated count 1.73 10^3/uL 0.60 - 3.40 [facility] Monocytes [#/volume] in Blood by Automated count 0.52 10^3/uL 0.00 - 0.90 [facility] Eosinophils [#/volume] in Blood by Automated count 0.06 10^3/uL 0.00 - 0.70 [facility] Basophils [#/volume] in Blood by Automated count 0.03 10^3/uL 0.00 - 0.20 [facility] #IG 0.02 10^3/uL 0.00 - 0.10 [facility] ospital #NRBC 0.00 10^3/uL 0.00 - 0.00 [facility] ospital MANUAL DIFF NOT INDICATED [facility] RBC MORPH NOT INDICATED [facility] spital ID Date Data Source [id number] 08/02/2020 11:05:00 AM EST [facility] Name Value Range Interpretation Code Description Data Fariba rce(s) Supporting Document(s) HCG URINE QUAL POSITIVE NORMAL: NEGATIVE [facility] HCG URINE QL REENTER POSITIVE NORMAL: NEGATIVE [facility] { KIT LOT # [id number] ){ KIT EXP DATE 05/09/21 ){ PROCEDURAL CONTROL VALID ) ID Date Data Source [id number] 08/02/2020 11:05:00 AM EST [facility] Name Value Range Interpretation Code Description Data Fariba rce(s) Supporting Document(s) URINALYSIS [facility] URINALYSIS SOURCE Clean Catch [facility] ital COLOR yellow NORMAL: Yellow [facility] CLARITY clear NORMAL: Clear [facility] Specific gravity of Urine by Test strip 1.010 1.001 - 1.030 [facility] pH 6.5 5 - 9 [facility] Glucose [Mass/volume] in Urine by Test strip NORM [facility]: [facility] Bilirubin.total [Presence] in Urine by Test strip NEG NORMAL: Negative [facility] Ketones [Presence] in Urine by Test strip NEG NORMAL: Negative [facility] Protein [Mass/volume] in Urine by Test strip NEG NORMAL: Negat [facility] Nitrite [Presence] in Urine by Test strip NEG NORMAL: Negative [facility] BLOOD 150 NORMAL: Negative [facility] Leukocyte esterase [Presence] in Urine by Test strip NEG KARLA L: Negative [facility] Urobilinogen [Mass/volume] in Urine by Test strip NOR less vale n 1.0 mg/dL [facility] MICROSCOPIC See Below [facility] ital WBC 0 - [address]: [address] [facility] Erythrocytes [#/volume] in Urine by Test strip 1 - 3 NORMAL: NON E SEEN [facility] EPITHELIAL MANY NORMAL: NONE SEEN A [facility] ID Date Data Source [id number] 07/23/2020 03:39:[address] [facility] PAGE: [address] [place] [address] REC NUM: [id number] : 1995 Med Reconciliation Patient: JOSLYN MENDOZA [id number] [place] [address] [phone], FRegistration Date/Time: 07/23/2020 15:39 Weight: 68.0 kgHeight/Length: 64 in.BMI: 25.8 ALLERGIES:No Known Drug Allergy The patient's Home Medications are listed below: NONE.The source(s) of the original Home Medication information: Not obtained.The following Medications were given to the patient in the Emergency Department:None.The following Medications were prescribed to the patient: Take acetaminophen (Tylenol) and ibuprofen (such as Advil, Motrin or Nuprin) according to label instructions. Available over the counter. -- PHILIPPE LOBO Name Value Range Interpretation Code Description Data Fariba rce(s) Supporting Document(s) ID Date Data Source [id number] 07/23/2020 03:39:00 PM [facility] PAGE: [address] [place], [place] [id number] [facility] [place] [address] [facility] REC NUM: [id number] : 1995 Physician Discharge Report Clinical Report - Physicians/[facility] Department [address] [place] [address] [place] [address] Patient: JOSLYN MENDOZA [facility]#: [id number]: F : 1995 Age: 25yArrival: 07/23/2020 15:39 Departure: 07/23/2020 19:25 Disposition: Discharge Weight:68 kg (S). Height/Length:64 inches (S). BMI:25.8 Time Seen: 16:52 07/23/2020. Arrived- By private vehicle. Historian- patient. HISTORY OF PRESENT ILLNESSChief Complaint: PELVIC PAIN. ABDOMINAL CRAMPS and MISSED PERIOD. This started since 07/12/20 and still present. The symptoms are described as mild. The patient has had pelvic pain. No abdominal pain, vaginal pain, low back pain, flank pain or irregular periods. No abnormal bleeding, vaginal itching, genital lesions, pain with urination or urinary frequency. No urgency of urination or hematuria. The patient has missed a period. Last normal menstrual period- 06/12/20. 2. Para 0. Abortions 2. Sexual history - sexually active. No contraception. Sexually active. Does not use control measures. (25 year old female presents to the ED with pelvic cramping since 2 days and suspects she might be . Patient states she has not gotten her period which was supposed to be on 07/12/20. She came to the ED for a UTI infection on 07/14/20 and was prescribed antibiotics which she only took for 2 days. Patient stopped taking the antibiotics since Friday; she suspected she was . Patient states she is having breast tenderness, and some pelvic cramping. Patient denies any fever, chills, headache, fatigue, weakness, or diz ziness. Patient also denies any increased frequency of urination, hematuria, or urgency.). Denies current . REVIEW OF SYSTEMS PAGE: [address] [place] [address] [facility] REC NUM: [id number] : 1995 Last normal menstrual period- . No chills, fever, muscle aches, sweats or chest pain. No cough, difficulty breathing, abdominal pain, nausea or vomiting. No urinary frequency or urinary hesitancy, hematuria, back pain or headache. No weakness or difficulty with urination. The patient has had mild pelvic pain. The pain has been in the suprapubic area and has been associated with a vaginal discharge and a scant amount of vaginal discharge. Denies current . All other systems reviewed and are negative. PAST HISTORYSee nurses notes. Additional Surgeries:. Medications:None. Allergies:No Known Drug Allergy. SOCIAL HISTORYNever smoker. No alcohol use or drug use. No recent travel. FAMILY HISTORYNo significant family medical history. ADDITIONAL NOTESThe nursing notes have been reviewed. PHYSICAL EXAMVital Signs: 07/23/2020 15:51 BP: 115/73. MAP: 87. HR: 78. RR: 16. O2 saturation: 96%. Temp: 98.3 F. Have been reviewed. Blood pressure normal. Oxygen saturation: room air- oxygen saturation normal. Appearance: Alert. Oriented X3. No acute distress. HEENT: Normal external inspection. Neck: Neck supple. CVS: Heart sounds normal. Respiratory: Breath sounds normal. Chest nontender. Abdomen: Soft and nontender. Bowel sounds normal. Back: Normal external inspection. Skin: Skin warm and dry. Normal skin color. No rash. Extremities: Extremities nontender. Neuro: Oriented X 3. Mood/affect normal. No motor deficit. LABS, X-RAYS, AND EKGLaboratory Te sts: EGFR (CALCULATED): (PHIL: 07/23/2020 18:22)( MsgRcvd 07/23/2020 18:50) Final results PAGE: [address] [place] [address] [facility] REC NUM: [id number] : 1995 Test Result Flag Units (Reference)ESTIMATED GFR (CALCULATED) EGFR 91 >59 mL/min/1.73m2 EGFR, -SCOTTISH 105 >59 mL/min/1.10k5Dhzy: Persistent reduction for 3 months or more in an eGFR <60 mL/min/1.73m2 defines CKD. Patients with eGFR values >=60 mL/min/1.73m2 may also have CKD if evidence of persistent proteinuria is present. Additional information may be found at [email or web address]. CBC w Diff: (PHIL: 07/23/2020 18:22)( MsgRcvd 07/23/2020 18:29) Final results Test Result Flag Units (Reference)WBC 10.7 x10E3/uL (4.3-10.9) RBC 4.46 x10E6/uL (3.80-5.30) HEMOGLOBIN 13.5 g/dl (11 .8-15.8) HEMATOCRIT 39.6 % (35.0-47.0) MCV 88.8 fl (82.0-98.0) MCH 30.3 pg (27.5-33.5) MCHC 34.1 g/dl (32.0-36.0) RDW 12.1 % (11.5-14.5) PLATELET COUNT 324 x10E3/uL (130-400) MPV 10.4 fl (8.6- 12.6) SEGMENTED NEUTROPHILS 61.9 % (44.0-74.0) LYMPHOCYTES 28.1 % (15.0-45.0) MONOCYTES 8.5 % (2.0-13.0) PAGE: [address] [place] [address] , [place] [address] REC NUM: [id number] : 1995 EOSINOPHILS 1.2 % (0.0-6.0) BASOPHILS 0.3 % (0.0-2.0) NEUTROPHIL ABSOLUTE 6.6 x10E3/uL (1.4-7.0) LYMPHOCYTES ABSOLUTE 3.0 x10E3/uL (1.0-3.4) MONOCYTE ABSOLUTE 0.9 x10E3/uL (0.2-1.0) EOSINOPHIL ABSOLUTE 0.1 x10E3/uL (0.0-0.5) BASOPHIL ABSOLUTE 0.0 x10E3/uL (0.0-0.2) Comprehensive Panel: (PHIL: 07/23/2020 18:22)( MsgRcvd 07/23/2020 18:50) Final results Test Result Flag Units (Reference)GLUCOSE 95 mg/dl (70-100) BUN 13 mg/dl (4-18) CREATININE, SERUM 0.89 mg/dl (0.50-1.10) SODIUM 138 mmol/l (136-146) POTASSIUM 3.7 mmol/l (3.5-5.3) CHLORIDE 102 mmol/l (96-109) CARBON DIOXIDE 25 mmol/l (20-32) ALBUMIN 4.2 g/dl (3.5-5.0) PROTEIN, TOTAL 7.9 g/dl (6.4-8.2) CALCIUM 9.2 mg/dl (8.4-10.4) ALKALINE PHOSPHATASE 49 U/l (10-118) SGOT (AST) 18 U/l (3-40) SGPT (ALT) 9 U/l (7-50) BILIRUBIN, TOTAL 0.27 L mg/dl (0.30-1.20) PAGE: [address] NUM: [id number] : 1995 BUN/CREATININE RATIO 14.6 (6.0-20.0) GLOBULIN 3.7 H g/dl (2.3-3.5) ANION GAP 11.0 mmol/l (7.0-16.0) OSMOLALITY (CALCULATED) 276 L mos/kg (280-300) A/G RATIO 1.1 (1.0-2.0) US Pelvic Transvaginal: (PHIL: 07/23/2020 17:22)( MsgRcvd 07/23/2020 18:33) Final results Exam -- PELVIC SONOGRAM""Clinical History: Pelvic pain""Technique: .""Comparison: None.""Quality assessment: Acceptable.""Measurements:The uterus measures: 9.2 x 6.4 x 5.2 cmRight ovary measures: 2.7 x 2 x 1.5 cmLeft ovary measures: 3.1 x 2.1 x 3 cmEndometrium: 6 mm""FINDINGS:""Uterus: The uterus is homogeneous in echotexture and otherwise unremarkablethere is a persistent posterior uterine contraction without definitive mass.Endometrium: The endometrial stripe is not thickened.Adnexa: Complex cyst 1.6 x 1.4 cm on leftFluid: There is minimal cul-de-sac free fluid.""IMPRESSION: COMPLEX CYST POSSIBLY SMALL INVOLUTING OR HEMORRHAGIC CYST ON LEFT.POSTERIOR UTERINE CONTRACTION OF UNCERTAIN ETIOLOGY WITHOUT DEFINITIVE MASS.RECOMMEND FOLLOW-UP ULTRASOUND IN 4-6 WEEKS TIME.""Electronically Signed By: SARAHI SILVA, CORTEZDate: 07/23/2020 18:32 Lipase: (PHIL: 07/23/2020 18:22)( MsgRcvd 07/23/2020 18:50) Final PAGE: [address] [place] [address] NUM: [id number] : 1995 results Test Result Flag Units (Reference)LIPASE 42 U/L (1-64) Urinalysis, Culture if indicated: (PHIL: 07/23/2020 15:55)( MsgRcvd 07/23/2020 16:14) Final results Test Result Flag Units (Reference)URINE COLOR YELLOW (YELLOW) URINE APPEARANCE SL CLOUDY AB (CLEAR) URINE SPECIFIC GRAVITY 1.015 (1.003-1.035) URINE LEUKOCYTES NEGATIVE (NEGATIVE) URINE NITRITE NEGATIVE (NEGATIVE) URINE PH 8.0 (5.0-8.0) URINE PROTEIN NEGATIVE mg/dl (NEGATIVE) URINE GLUCOSE NEGATIVE mg/dl (NEGATIVE) URINE KETONES NEGATIVE mg/dl (NEGATIVE) URINE UROBILINOGEN 0.2 mg/dl (NORMAL OR <1)URINE BILIRUBIN NEGATIVE (NEGATIVE) URINE OCCULT BLOOD NEGATIVE (NEGATIVE) URINE MICROSCOPIC PERFORMED Microscopic performed. Elements observed are listed. If no elements are listed,the Microscopic is negative. WBC 0-1 hpf (0-5) AMORPHOUS PRECIPITATES 3+ AB hpf (NEGATIVE) EPITHELIAL CELLS 2-5 hpf (0-5) URINE C+S IF INDICATED NOT INDICATED PAGE: [address] [place] [address] [facility] REC NUM: [id number] : 1995 Urine Qual: (PHIL: 07/23/2020 15:55)( MsgRcvd 07/23/2020 16:12) Final results Test Result Flag Units (Reference), URINE NEGATIVE (NEGATIVE) . PROGRESS AND PROCEDURESPatient counseled in person regarding the patient's test results, diagnosis and need for follow-up. Patient agrees with plan of care. Disposition: Discharged home. Condition: good and stable. CLINICAL IMPRESSIONSingle follicular left ovarian cyst. INSTRUCTIONSDrink plenty of fluids. Warnings: Further evaluation is necessary. GENERAL WARNINGS: Return or contact your physician immediately if your condition worsens or changes unexpectedly, if not improving as expected, or if other problems arise. OTC Medications:Take acetaminophen (Tylenol) and ibuprofen (such as Advil, Motrin or Nuprin) according to label instructions. Available over the counter. Follow-up:Return to the emergency department if not better. Understanding of the discharge instructions verbalized by patient. Follow-up with: Naila Liu M.D., Family Practice, , [facility], [facility] [place], [place], [address]Wxgnpa up in one week even if well. Call for the next available appointment. Reason for referral: evaluation and treatment. PAGE: [address] [place] [address] [facility] REC NUM: [id number] : 1995 Follow-up with: Diaan Costa MD, OBGYN, , [facility], [address] [place], [place], [address]Uultdx up in one week even if well. Call for the next available appointment. Reason for referral: evaluation and treatment. (Electronically signed by PHILIPPE LOBO 07/23/2020 19:35) Addenda for JOSLYN MENDOZA VisitID: [id number] Date: 07/23/2020 07/23/2020 16:52The patient was evaluated during the global COVID-19 pandemic, and that diagnosis was suspected/considered upon their initial presentation. Their evaluation, treatment and testing was consistent with current guidelines for patients who present with complaints or symptoms that may be related to COVID-19. (Electronically signed by PHILIPPE LOBO - 07/23/2020 16:52) Name Value Range Interpretation Code Description Data Fariba rce(s) Supporting Document(s) ID Date Data Source [id number] 07/23/2020 06:49:00 PM [facility] Name Value Range Interpretation Code Description Data Fariba rce(s) Supporting Document(s) ESTIMATED GFR (CALCULATED) [facility] EGFR 91 [facility] >59 mL/min/1.73m2 EGFR, -SCOTTISH 105 [facility] >59 mL/min/1.32z3Nzxc: Persistent reduction for 3 months or more in an eGFR <60 mL/min/1.73m2 defines CKD. Patients with eGFR values >=60 mL/min/1.73m2 may also have CKD if evidence of persistent proteinuria is present. Additional information may be found at [email or web address]. R [facility], [place] [address] * ID Date Data Source [id number] 07/23/2020 06:49:00 PM [facility] Name Value Range Interpretation Code Description Data Fariba rce(s) Supporting Document(s) LIPASE 42 U/L 1-[address] [facility] [address] [facility], Dept of [address] [place] [address] * ID Date Data Source [id number] 07/23/2020 06:49:00 PM [facility] Name Value Range Interpretation Code Description Data Fariba rce(s) Supporting Document(s) GLUCOSE 95 mg/dl 70-100 [facility] BUN 13 mg/dl 4-18 [facility] CREATININE, SERUM 0.89 mg/dl 0.50-1.10 [facility] SODIUM 138 mmol/l 136-146 [facility] POTASSIUM 3.7 mmol/l 3.5-5.3 [facility] CHLORIDE 102 mmol/l 96-109 [facility]is CARBON DIOXIDE 25 mmol/l 20-32 [facility] ospital ALBUMIN 4.2 g/dl 3.5-5.0 [facility] al PROTEIN, TOTAL 7.9 g/dl 6.4-8.2 [facility] CALCIUM 9.2 mg/dl 8.4-10.4 [facility] al ALKALINE PHOSPHATASE 49 U/l 10-118 [facility] SGOT (AST) 18 U/l 3-40 [facility] SGPT (ALT) 9 U/l 7-50 [facility] BILIRUBIN, TOTAL 0.27 mg/dl 0.30-1.20 L [facility] BUN/CREATININE RATIO 14.6 6.0-20.0 [facility] GLOBULIN 3.7 g/dl 2.3-3.5 H [facility] ANION GAP 11.0 mmol/l 7.0-16.0 [facility] OSMOLALITY (CALCULATED) 276 mos/kg 280-[address] [facility] A/G RATIO 1.1 1.0-2.0 [facility] [address] [facility], [place] [address] * ID Date Data Source [id number] 07/23/2020 06:29:[address] [facility] Name Value Range Interpretation Code Description Data Fariba rce(s) Supporting Document(s) WBC 10.7 x10E3/uL 4.3-10.9 [facility] spital RBC 4.46 x10E6/uL 3.80-5.30 [facility] HEMOGLOBIN 13.5 g/dl 11.8-15.8 [facility] HEMATOCRIT 39.6 % 35.0-47.0 [facility] MCV 88.8 fl 82.0-98.0 [facility] MCH 30.3 pg 27.5-33.5 [facility] MCHC 34.1 g/dl 32.0-36.0 [facility] RDW 12.1 % 11.5-14.5 [facility] PLATELET COUNT 324 x10E3/uL 130-400 [facility] MPV 10.4 fl 8.6-12.6 [facility] al SEGMENTED NEUTROPHILS 61.9 % 44.0-74.0 [facility] LYMPHOCYTES 28.1 % 15.0-45.0 [facility] ital MONOCYTES 8.5 % 2.0-13.0 [facility] al EOSINOPHILS 1.2 % 0.0-6.0 [facility] ital BASOPHILS 0.3 % 0.0-2.0 [facility] al NEUTROPHIL ABSOLUTE 6.6 x10E3/uL 1.4-7.0 [facility] LYMPHOCYTES ABSOLUTE 3.0 x10E3/uL 1.0-3.4 [facility] MONOCYTE ABSOLUTE 0.9 x10E3/uL 0.2-1.0 [facility] EOSINOPHIL ABSOLUTE 0.1 x10E3/uL 0.0-0.5 [facility] BASOPHIL ABSOLUTE 0.0 x10E3/uL 0.0-0.2 [facility] R [facility], [place] [address] * ID Date Data Source [id number] 07/23/2020 06:33:[address] [facility] PELVIC SONOGRAMClinical History: Pelvic painTechnique: .Comparison: None.Quality assessment: Acceptable.Measurements:The uterus measures: 9.2 x 6.4 x 5.2 cmRight ovary measures: 2.7 x 2 x 1.5 cmLeft ovary measures: 3.1 x 2.1 x 3 cmEndometrium: 6 mmFINDINGS:Uterus: The uterus is homogeneous in echotexture and otherwise unremarkablethere is a persistent posterior uterine contraction without definitive mass.Endometrium: The endometrial stripe is not thickened.Adnexa: Complex cyst 1.6 x 1.4 cm on leftFluid: There is minimal cul-de-sac free fluid.IMPRESSION: COMPLEX CYST POSSIBLY SMALL INVOLUTING OR HE MORRHAGIC CYST ON LEFT.POSTERIOR UTERINE CONTRACTION OF UNCERTAIN ETIOLOGY WITHOUT DEFINITIVE MASS.RECOMMEND FOLLOW-UP ULTRASOUND IN 4-6 WEEKS TIME.Electronically Signed By: WILDA MCCLAIN MDDate: 07/23/2020 18:32 Name Value Range Interpretation Code Description Data Fariba rce(s) Supporting Document(s) ID Date Data Source [id number] 07/26/2020 04:06:[address] [facility] Name Value Range Interpretation Code Description Data Fariba rce(s) Supporting Document(s) URINE CULTURE SOURCE CLEAN CATCH [facility] URINE CULTURE Final report [facility] RESULT 1 No growth [facility] PATIENT: REJI JORGENSEN LOC: [facility] BILL# : [id number] : 1995 SEX: FORDERED BY: LASHELL PAEZ ORDERED : 07/23/2020 16:57 COLLECTED: 07/23/2020 15:55ORDER : [id number] RECEIVED : 07/23/2020 18:13 TEST NAME RESULT UNITS RANGES ABN FL ST SITEURINE CULTURE SOURCE CLEAN CATCH FURINE CULTURE Final report F RN// RN-[facility] Kevyn [address] [facility] [id number]//RESULT 1 No growth F RN// RN-[facility] Fitzhugh [address] [facility] [id number]// -------- ID Date Data Source [id number] 07/23/2020 04:13:[address] [facility] Name Value Range Interpretation Code Description Data Fariba rce(s) Supporting Document(s) URINE COLOR YELLOW YELLOW [facility] URINE APPEARANCE SL CLOUDY CLEAR A [facility] URINE SPECIFIC GRAVITY 1.015 1.003-1.035 [facility] URINE LEUKOCYTES NEGATIVE NEGATIVE [facility] URINE NITRITE NEGATIVE NEGATIVE [facility] spital URINE PH 8.0 5.0-8.0 [facility] URINE PROTEIN NEGATIVE mg/dl NEGATIVE [facility] URINE GLUCOSE NEGATIVE mg/dl NEGATIVE [facility] URINE KETONES NEGATIVE mg/dl NEGATIVE [facility] URINE UROBILINOGEN 0.2 mg/dl NORMAL OR <1 [facility] URINE BILIRUBIN NEGATIVE NEGATIVE [facility] URINE OCCULT BLOOD NEGATIVE NEGATIVE [facility] URINE MICROSCOPIC PERFORMED [facility] Microscopic performed . Elements observed are listed. If no elements are listed,the Microscopic is negative. WBC 0-1 hpf 0-5 [facility] AMORPHOUS PRECIPITATES 3+ hpf NEGATIVE A [facility] EPITHELIAL CELLS 2-5 hpf 0-5 [facility] URINE C+S IF INDICATED NOT INDICATED [facility], Dept of [facility] h [address] [place] [address] * ID Date Data Source [id number] 07/23/2020 04:11:00 PM [facility] Name Value Range Interpretation Code Description Data Fariba rce(s) Supporting Document(s) , URINE NEGATIVE NEGATIVE [facility], Dept of [facility] h [address] [place] [address] * ID Date Data Source [id number] 07/15/2020 12:00:00 AM EST [facility] ([facility]) Name Value Range Interpretation Code Description Data Fariba rce(s) Supporting Document(s) Glucose [Mass/volume] in Serum or Plasma Negative Glucose: Negative 07/15/2020 [facility] ([facility]) ID Date Data Source [id number] 07/15/2020 12:00:00 AM EST [facility] ([facility]) Name Value Range Interpretation Code Description Data Fariba rce(s) Supporting Document(s) Bilirubin.total [Mass/volume] in Serum or Plasma Negative Bilirubin: Negative 07/15/2020 [facility] ([facility]) ID Date Data Source [id number] 07/15/2020 12:00:00 AM EST [facility] ([facility]) Name Value Range Interpretation Code Description Data Fariba rce(s) Supporting Document(s) Ketone Negative Ketone: Negative 020 [facility]MAKER ([facility]) ID Date Data Source [id number] 07/15/2020 12:00:00 AM EST [facility] ([facility]) Name Value Range Interpretation Code Description Data Fariba rce(s) Supporting Document(s) Specific gravity of Urine 1.015 Specific G ravity: 1.015 07/15/2020 [facility]MA[facility] ([facility]) ID Date Data Source [id number] 07/15/2020 12:00:00 AM EST [facility]MAK[facility] ([facility]) Name Value Range Interpretation Code Description Data Fariba rce(s) Supporting Document(s) Hemoglobin [Presence] in Urine Hemol Trace Blood (Urine): Hemol Trace 07/15/2020 CHARTNHKER ([facility]) ID Date Data Source [id number] 07/15/2020 12:00:00 AM EST CH[facility]MAK[facility] ([facility]) Name Value Range Interpretation Code Description Data Fariba rce(s) Supporting Document(s) pH of Blood 7.0 pH: 7.0 07/15/2020 CHARTNHK ER ([facility]) ID Date Data Source [id number] 07/15/2020 12:00:00 AM EST CH[facility]MAK[facility] ([facility]) Name Value Range Interpretation Code Description Data Fariba rce(s) Supporting Document(s) Protein [Mass/volume] in Serum or Plasma Negative Protein: Negative 07/15/2020 [facility]MAKER ([facility]) ID Date Data Source [id number] 07/15/2020 12:00:00 AM EST CH[facility]MAK[facility] ([facility]) Name Value Range Interpretation Code Description Data Fariba rce(s) Supporting Document(s) Urobilinogen [Mass/volume] in Urine Negative Urobilinogen: Negative 07/15/2020 CH[facility]NHKER ([facility]) ID Date Data Source [id number] 07/15/2020 12:00:00 AM EST [facility]MAK[facility] ([facility]) Name Value Range Interpretation Code Description Data Fariba rce(s) Supporting Document(s) Nitrite [Presence] in Urine Negative Nitrite: Negative 07/15/2020 CH[facility]NHKER ([facility]) ID Date Data Source [id number] 07/15/2020 12:00:00 AM EST CH[facility]MAKER ([facility]) Name Value Range Interpretation Code Description Data Fariba rce(s) Supporting Document(s) Leukocytes [#/volume] in Blood Large Leuko cytes: Large 07/15/2020 CH[facility]MAKER ([facility]) ID Date Data Source [id number] 05/19/2020 09:12:00 AM EDT [facility] [address] [place] [address] PHONE: [phone] FAX: [phone] Name .................. : REJI Monaco Acct Number.................. : [id number] ROOM. ................. : MR Number ................... : [id number] Stay type ............. : O/P Discharge Date......... ... : 05/17/20 Admit Date ......... : 05/17/20 Admit Phys .................... : TRANG ADAIR Date of ....... : 1995 Family Phys ................... : UNKNOWN CO Phone .................. : [phone] Age ................................ : 24 Film# .................. .:[id number] Sex ................................. : F Unsigned transcriptions are preliminary reports and do not represent a medical or legal document MRI LOWER EXT ANY JT W CONT [id number] COMPLETE:05/17/20 14:[address] [facility] [id number] (REASON FOR PROCESS: PAIN AND POPPING HIP MRI OF THE LEFT HIP: FINDINGS: Note that on the coronal images, the right hip is also included. Contrast is seen within bilateral hip joints status post earlier intra-articular contrast injection/arthrogram. No fracture or dislocation is identified. Normal marrow signal intensity is demonstrated without suspicious osseous lesion. There is no evidence of avascular necrosis. There is no joint space narrowing or spurring. There is a small linear defect with increased signal intensity at the inferior superior labrum on the left hip from a small labral tear. The surrounding musculature and soft tissues appear unremarkable. Within the limited portion of the pelvis, the urinary bladder appears unremarkable. It is more distended than was noted on the limited views of the pelvis on the MRI of the right hip which was done after this MRI of the left hip. The patient likely voided. The uterus and right ovary appear unremarkable. The left ovary is not clearly seen. A small amount of free fluid i s seen in the cul-de-sac. IMPRESSION: No fracture/dislocation. No suspicious osseous lesion. Small labral tear left hip. Small amount of free fluid in the cul-de-sac. Electronically Reviewed and Signed By Benedicto Trevino MD , 05/19/20 09:12, TDS Transcribe Initials: DZ , Transcribe Date: 05/18/20 00:50, Dictation Date: Copy for: TRANG DELA CRUZ via fax Copy for: [address] [place] [address] REC Page 1 of 1 Name Value Range Interpretation Code Description Data Fariba rce(s) Supporting Document(s) ID Date Data Source [id number] 05/19/2020 09:12:00 [place] [address] PHONE: [phone] FAX: [phone] Name .................. : REJI SAENZELE Carlos Enrique Acct Number.................. : [id number] ROOM. ................. : MR Number ................... : [id number] Stay type ............. : O/P Discharge Date......... ... : 05/17/20 Admit Date ......... : 05/17/20 Admit Phys .................... : TRANG ADAIR Date of ....... : 1995 Family Phys ................... : UNKNOWN CO Phone .................. : [phone] Age ................................ : 24 Film# .................. .:[id number] Sex ................................. : F Unsigned transcriptions are preliminary reports and do not represent a medical or legal document MRI LOWER EXT ANY JT W CONT R [id number] COMPLETE:05/17/20 14:[address] [facility] [address] (REASON FOR PROCESS: PAIN AND POPPING MRI OF THE RIGHT HIP: FINDINGS: Contrast is seen within the hip joint status post earlier intra-articular contrast injection/arthrogram. No fracture or dislocation is identified. Normal marrow signal intensity is demonstrated without suspicious osseous lesion. There is no evidence of avascular necrosis. No joint space narrowing or spurring is seen. The labrum is intact. The surrounding musculature and soft tissues appear unremarkable. Within the limited visualized portion of the pelvis, the visualized portion of the uterus is grossly unremarkable along with the limited visualized portion of the right ovary. A small amount of free fluid is seen in the cul-de-sac. The urinary bladder is not imaged in its entirety. It is nondistended. IMPRESSION: Unremarkable MRI right hip. Small amount of free fluid in the cul-de-sac. Electronically Reviewed and Signed By Benedicto Trevino MD , 05/19/20 09:12, TDS Transcribe Initials: DZ , Transcribe Date: 05/18/20 00:47, Dictation Date: Copy for: TRANG DELA CRUZ via fax Copy for: [facility] REC Page 1 of 1 Name Value Range Interpretation Code Description Data Fariba rce(s) Supporting Document(s) ID Date Data Source [id number] 05/19/2020 09:09:00 AM EDT [facility] [address] [place] [address] PHONE: [phone] FAX: [phone] Name .................. : REJI Monaco Acct Number.................. : [id number] ROOM. ................. : Number ................... : [id number] Stay type ............. : O/P Discharge Date......... ... : 05/17/20 Admit Date ......... : 05/17/20 Admit Phys .................... : TRANG ADAIR Date of ....... : 1995 Family Phys ................... : UNKNOWN CO Phone .................. : [phone] Age ................................ : 24 Film# .................. .:[id number] Sex ................................. : F Unsigned transcriptions are preliminary reports and do not represent a medical or legal document INJECTION FOR HIP ARTHROGRAM [id number] COMPLETE:05/17/20 12:51 [facility] [address] REASON FOR EXAM: PAIN AND POPPING HIP FLUOROSCOPIC EXAMINATION OF THE LEFT HIP FOR ARTHROGRAM: PROCEDURE: The benefits and risks of the examination were discussed with the patient. The patient has given informed consent for the procedure. A time out was performed confirming the left hip is the proper hip for today's examination. The skin surface was marked using fluoroscopic guidance. The skin was prepped and dressed in normal sterile fashion. Superficial and deep Lidocaine administration was performed with a 25-gauge needle. A 22- gauge spinal needle was then placed and advanced under fluoroscopic guidance. The needle was passed into the joint space at which time iodinated contrast was administered to confirm proper placement. Approximately 5 cc of iodinated contrast was administered. Once the proper placement was confirmed, approximately 10 cc of 1:200 Gadolinium solution was administered. The needle was then removed. The skin was cleansed and bandaged. No complications were experienced during the procedure. 3 images were obtained and 6 seconds of fluoroscopy was utilized. Examination dictated by KEESHA Johnson. Examination was reviewed with Loki Trevino MD, radiologist at the time of this dictation. Electronically Reviewed and Signed By Benedicto Trevino MD , 05/19/20 09:09, TDS Transcribe Initials: DZ , Transcribe Date: 05/17/20 22:50, Dictation Date: Page 1 of 2 [place] [address] PHONE: [phone] FAX: [phone] Name .................. : REJI Monaco Acct Number.................. : [id number] ROOM. ................. : MR Number ................... : [id number] Stay type ............. : O/P Discharge Date......... ... : 05/17/20 Admit Date ......... : 05/17/20 Admit Phys .................... : TRANG ADAIR Date of ....... : 1995 Family Phys ................... : UNKNOWN CO Phone .................. : [phone] Age ................................ : 24 Film# .................. .:[id number] Sex ................................. : F Unsigned transcriptions are preliminary reports and do not represent a medical or legal document INJECTION FOR HIP ARTHROGRAM 72755 COMPLETE:05/17/20 12:51 [facility] [address] REASON FOR EXAM: PAIN AND POPPING HIP Copy for: TRANG DELA CRUZ via fax Copy for: [facility] REC Page 2 of 2 Name Value Range Interpretation Code Description Data Fariba rce(s) Supporting Document(s) ID Date Data Source [id number] 05/19/2020 09:09:00 [place] [address] PHONE: [phone] FAX: [phone] Name .................. : REJI Monaco Acct Number.................. : [id number] ROOM. ................. : Number ................... : [id number] Stay type ............. : O/P Discharge Date......... ... : 05/17/20 Admit Date ......... : 05/17/20 Admit Phys .................... : TRANG ADAIR Date of ....... : 1995 Family Phys ................... : UNKNOWN CO Phone .................. : [phone] Age ................................ : 24 Film# .................. .:[id number] Sex ................................. : F Unsigned transcriptions are preliminary reports and do not represent a medical or legal document INJECTION FOR HIP ARTHROGRAM [id number] COMPLETE:05/17/20 12:51 [facility] [address] REASON FOR EXAM: [place] [id number] COMPLETE:05/17/20 12:51 [facility] 32009 (REASON FOR PELVIS: PAIN AND POPPING HIP FLUOROSCOPIC EXAMINATION OF THE RIGHT HIP FOR ARTHROGRAM: FINDINGS: The clinical education manager view shows no acute findings. PROCEDURE: The benefits and risks of the examination were discussed with the patient. The patient has given informed consent for the procedure. A time out was performed confirming the right hip is the proper hip for today's examination. The skin surface was marked using fluoroscopic guidance. The skin was prepped and dressed in normal sterile fashion. Superficial and deep Lidocaine administration was performed with a 25-gauge needle. A 22- gauge spinal needle was then placed and advanced under fluoroscopic guidance. The needle was passed into the joint space at which time iodinated contrast was administered to confirm proper placement. Approximately 5 cc of iodinated contrast was administered. Once the proper placement was confirmed, approx imately 10 cc of 1:200 Gadolinium solution was administered. The needle was then removed. The skin was cleansed and bandaged. No complications were experienced during the procedure. 3 images were obtained and 3 seconds of fluoroscopy time was utilized. Examination dictated by KEESHA Johnson. Examination was reviewed with Loki Trevino MD, radiologist at the time of this dictation. Page 1 of 2 [facility] [address] [place] [address] PHONE: [phone] FAX: [phone] Name .................. : REJI Monaco Acct Number.................. : [id number] ROOM. ................. : MR Number ................... : [id number] Stay type ............. : O/P Discharge Date......... ... : 05/17/20 Admit Date ......... : 05/17/20 [facility] ....... : 1995 Family Phys ................... : UNKNOWN CO Phone .................. : [phone] Age ................................ : 24 Film# .................. .:[id number] Sex ................................. : F Unsigned transcriptions are preliminary reports and do not represent a medical or legal document INJECTION FOR HIP ARTHROGRAM 17581 COMPLETE:05/17/20 12:51 [facility] [address] REASON FOR EXAM: [place] [id number] COMPLETE:05/17/20 12:51 [facility] [address]53 (REASON FOR PELVIS: PAIN AND POPPING HIP Electronically Reviewed and Signed By Benedicto Trevino MD , 05/19/20 09:09, TDS Transcribe Initials: LUIS E , Transcribe Date: 05/17/20 22:48, Dictation Date: Copy for: TRANG DELA CRUZ via fax Copy for: [facility] REC Page 2 of 2 Name Value Range Interpretation Code Description Data Fariba rce(s) Supporting Document(s) ID Date Data Source [id number] 05/19/2020 09:09:00 AM EDT [facility] [address] [place] [address] PHONE: [phone] FAX: [phone] Name .................. : REJI Monaco Acct Number.................. : [id number] ROOM. ................. : Number ................... : [id number] Stay type ............. : O/P Discharge Date......... ... : 05/17/20 Admit Date ......... : 05/17/20 Admit Phys .................... : TRANG ADAIR Date of ....... : 1995 Family Phys ................... : UNKNOWN CO Phone .................. : [phone] Age ................................ : 24 Film# .................. .:[id number] Sex ................................. : F Unsigned transcriptions are preliminary reports and do not represent a medical or legal document INJECTION FOR HIP ARTHROGRAM 02773 COMPLETE:05/17/20 12:51 [facility] [address] REASON FOR EXAM: [place] [id number] COMPLETE:05/17/20 12:51 [facility] 26525 (REASON FOR PELVIS: PAIN AND POPPING HIP FLUOROSCOPIC EXAMINATION OF THE RIGHT HIP FOR ARTHROGRAM: FINDINGS: The clinical education manager view shows no acute findings. PROCEDURE: The benefits and risks of the examination were discussed with the patient. The patient has given informed consent for the procedure. A time out was performed confirming the right hip is the proper hip for today's examination. The skin surface was marked using fluoroscopic guidance. The skin was prepped and dressed in normal sterile fashion. Superficial and deep Lidocaine administration was performed with a 25-gauge needle. A 22- gauge spinal needle was then placed and advanced under fluoroscopic guidance. The needle was passed into the joint space at which time iodinated contrast was administered to confirm proper placement. Approximately 5 cc of iodinated contrast was administered. Once the proper placement was confirmed, approx imately 10 cc of 1:200 Gadolinium solution was administered. The needle was then removed. The skin was cleansed and bandaged. No complications were experienced during the procedure. 3 images were obtained and 3 seconds of fluoroscopy time was utilized. Examination dictated by KEESHA Johnson. Examination was reviewed with Loki Trevino MD, radiologist at the time of this dictation. Page 1 of 2 [place] [address] PHONE: [phone] FAX: [phone] Name .................. : REJI Monaco Acct Number.................. : [id number] ROOM. ................. : Number ................... : [id number] Stay type ............. : O/P Discharge Date......... ... : 05/17/20 Admit Date ......... : 05/17/20 Admit Phys .................... : TRANG ADAIR Date of ....... : 1995 Family Phys ................... : UNKNOWN CO Phone .................. : [phone] Age ................................ : 24 Film# .................. .:[id number] Sex ................................. : F Unsigned transcriptions are preliminary reports and do not represent a medical or legal document INJECTION FOR HIP ARTHROGRAM 87318 COMPLETE:05/17/20 12:51 [facility] [address] REASON FOR EXAM: [place] [id number] COMPLETE:05/17/20 12:51 [facility] 28376 (REASON FOR PELVIS: PAIN AND POPPING HIP Electronically Reviewed and Signed By Benedicto Trevino MD , 05/19/20 09:09, TDS Transcribe Initials: LUIS E , Transcribe Date: 05/17/20 22:48, Dictation Date: Copy for: TRANG DELA CRUZ via fax Copy for: [facility] REC Page 2 of 2 Name Value Range Interpretation Code Description Data Fariba rce(s) Supporting Document(s) ID Date Data Source [id number] 05/08/2020 10:43:00 AM EDT [facility] [address] [place] [address] PHONE: [phone] FAX: [phone] Name .................. : REJI Monaco Acct Number.................. : [id number] ROOM. ................. : MR Number ................... : [id number] Stay type ............. : E/R Discharge Date......... ... : 05/05/20 Admit Date ......... : 05/05/20 Admit Phys .................... : AJAY QUICK Date of ....... : 1995 Family Phys ................... : UNKNOWN CO Phone .................. : [phone] Age ................................ : 24 Film# .................. .:[id number] Sex ................................. : F Unsigned transcriptions are preliminary reports and do not represent a medical or legal document HIP COMPLETE [place] [id number] COMPLETE:05/05/20 11:32 88100 Reason(s): Hip Injury RIGHT HIP X-RAY: HISTORY: Pain. FINDINGS: There is normal alignment and position of the bones of the right hip. No evidence for subluxation or fracture can be identified. No significant degenerative changes are noted within the right hip. IMPRESSION: Negative right hip. Electronically Reviewed and Signed By Lewis Lopez MD , 05/08/20 10:43, MRA Transcribe Initials: LUIS E , Transcribe Date: 05/05/20 15:58, Dictation Date: Copy for: GLORIA Drew via fax Copy for: EMERGENCY DEPT via modem Copy for: [facility] REC DISCHARGED Page 1 of 1 Name Value Range Interpretation Code Description Data Fariba rce(s) Supporting Document(s) ID Date Data Source [id number] 05/08/2020 10:42:00 AM EDT [facility] [address] [place] [address] PHONE: [phone] FAX: [phone] Name .................. : REJI Monaco Acct Number.................. : [id number] ROOM. ................. : VT- MR Number ................... : [id number] Stay type ............. : E/R Discharge Date......... ... : 05/05/20 Admit Date ......... : 05/05/20 Admit Phys .................... : AJAY QUICK Date of ....... : 1995 Family Phys ................... : UNKNOWN CO Phone .................. : [phone] Age ................................ : 24 Film# .................. .:[id number] Sex ................................. : F Unsigned transcriptions are preliminary reports and do not represent a medical or legal document HIP COMPLETE LT [id number] COMPLETE:05/05/20 11:53 [id number] Reason(s): Hip Pain LEFT HIP X-RAY: HISTORY: Pain. FINDINGS: There is normal alignment and position of the bones of the left hip. No evidence for subluxation or f racture can be identified. No significant degenerative changes are noted within the left hip. IMPRESSION: Negative left hip. Electronically Reviewed and Signed By Demetrio Lopez MD , 05/08/20 10:42, MRA Transcribe Initials: DZ , Transcribe Date: 05/05/20 15:57, Dictation Date: Copy for: GLORIA Drew via fax Copy for: EMERGENCY DEPT via modem Copy for: [facility] REC DISCHARGED Page 1 of 1 Name Value Range Interpretation Code Description Data Fariba rce(s) Supporting Document(s) ID Date Data Source [id number] 05/08/2020 10:42:00 [place] [address] PHONE: [phone] FAX: [phone] Name .................. : REJI SAENZELE Carlos Enrique Acct Number.................. : [id number] ROOM. ................. : VT-01 Number ................... : [id number] Stay type ............. : E/R Discharge Date......... ... : 05/05/20 Admit Date ......... : 05/05/20 Admit Phys .................... : AJAY QUICK Date of ....... : 1995 Family Phys ................... : UNKNOWN CO Phone .................. : [phone] Age ................................ : 24 Film# .................. .:[id number] Sex ................................. : F Unsigned transcriptions are preliminary reports and do not represent a [place] [id number] COMPLETE:05/05/20 11:53 [id number] Reason(s): Pelvic Pain AP PELVIS X-RAY: HISTORY: Pelvic pain. FINDINGS: There is normal alignment and position of the bones of the pelvis and hips. No evidence for f racture or any other abnormalities are noted. IMPRESSION: Unremarkable pelvis. Electronically Reviewed and Signed By Demetrio Lopez MD , 05/08/20 10:42, [facility] Transcribe Initials: LUIS E , Transcribe Date: 05/05/20 15:57, Dictation Date: Copy for: GLORIA Drew via fax Copy for: EMERGENCY DEPT via modem Copy for: 710 [facility] REC DISCHARGED Page 1 of 1 Name Value Range Interpretation Code Description Data Fariba rce(s) Supporting Document(s) ID Date Data Source [id number] 05/05/2020 11:04:00 AM EDT [facility] 1 OrderSheet [facility] Emergency Department [address] [place] [address] Phone #: [phone] [id number]- [id number] 05/05/2020 10:55 Patient: JOSLYN MENDOZA Sex: F : 1995 Age: 24yWEIGHT:69.8 kg (S) HEIGHT:64 inches (S) BMI:26.4ALLERGIES: No Known Drug AllergyCHIEF COMPLAINT: Hip InjuryDIAGNOSIS: Urinary tract infectious disease, Strain of muscle of lower limbLAB ORDERSOrder Description Priority Entered Acknowledged InitialedUrinalysis (Clean STAT 11:45 05/05/2020 11:50 Bill,Kindra) Kranthi Goss R.N.Culture, Urine STAT 12:35 05/05/2020 12:38 Bill,(Urine, Clean Kranthi THAO; Wolfgang Murillo)DIAGNOSTIC STUDY ORDERSOrder Description Priority Entered Acknowledged InitialedHip Complete Right STAT 11:32 05/05/2020 11:50 Bill,(Oxygen?(No)) Kranthi THAO; Wolfgang Roman Reason for Study: Hip Injury, Hip PainPelvis 1 View STAT 11:53 05/05/2020 12:29 Bill,(Oxygen?(No)) Kranthi Goss R.N. Reason for Study: Pelvic PainHip Complete Left STAT 11:53 05/05/2020 12:29 Bill,(Oxygen?(No)) Kranthi Goss R.N. Reason for Study: Hip Pain, PainMEDICATION/IV/DRIP/FLUID ORDERSOrder Description Priority Entered Acknowledged InitialedGENERAL ORDERSOrder Description Priority Entered Acknowledged InitialedCrutches 12:58 05/05/2020 13:17 Kranthi Khan R.N.[Electronically signed by Wolfgang Khan R.N. (13:22 05/05/2020)][Electronically signed by Kranthi Darby (15:27 05/05/2020)][Electronically locked by Wolfgang Khan R.N. (13:22 05/05/2020)] Name Value Range Interpretation Code Description Data Fariba rce(s) Supporting Document(s) ID Date Data Source [id number] 05/05/2020 11:04:00 AM EDT [facility] 1 Medication Reconciliation Report [facility] Emergency Department [address] [place] [address] Phone #: [phone] [id number]- [id number] 05/05/2020 10:55 Patient: JOSLYN MENDOZA Sex: F : 1995 Age: 24yWeight: 69.8 kgHeight/Length: 64 in.BMI: 26.4ALLERGIES: No Known Drug AllergyThe patient's Home Medications are listed below:NONE.The source(s) of the original Home Medication information:patientThe following Medications were given to the patient in the Emergency Dep artment:None.The following Medications were prescribed to the patient:Cipro 500 mg tablet Take 1 tablet twice a day for 7 days -- for UTI. Dispense 14 tablet. Refills: 0.Substitution permitted.Pharmacy - [facility] [email or web address] [facility] ; [place] [address]. FaxNumber: .ibuprofen 800 mg tablet Take 1 tablet every eight hours for 10 days -- for hip pain/groin strain. Izvveepr12 tablet. Refills: 0. Substitution permitted.Pharmacy - [facility] [email or web address] [facility] ; [place] [address]. . -- KEESHA Ram Name Value Range Interpretation Code Description Data Fariba rce(s) Supporting Document(s) ID Date Data Source [id number] 05/05/2020 11:04:00 AM EDT [facility] 1 Medication Administration Record [facility] Emergency Department [address] [place] [address] Phone #: ext- [phone] 09/2019 10:55 Patient: JOSLYN MENDOZA Sex: F : 1995 Age: 24yWeight: 69.8 kgHeight/Length: 64 inBMI: 26.4ALLERGIES: No Known Drug AllergyDate/Time Medication Administered Medication Ordered Name Value Range Interpretation Code Description Data Fariba rce(s) Supporting Document(s) ID Date Data Source [id number] 05/05/2020 11:04:00 AM EDT [facility] 1 General Instructions [facility] Emergency Department [address] [place] [address] Phone #: ext- [phone] 05/05/2020 10:55 Patient: JOSLYN MENDOZA Sex: F : 1995 Age: 24yMuscle strain of the right thigh (R groin).Acute urinary tract infection with cystitis and hematuria. Not associated with indwelling catheter orobstruction.INSTRUCTIONSUse crutches for five days. No strenuous activity until better. No weight bearing on right leg for five d ays.Warnings: GENERAL WARNINGS: Return or contact your physician immediately if your conditionworsens or changes unexpectedly, if not improving as expected, or if other problems arise. Specificallyreturn if pain, vomiting, bleeding, breathing difficulty or fever.Prescription Medications:Cipro 500 mg tablet Take 1 tablet twice a day for 7 days -- for UTI. Dispense 14 tablet. Refills: 0.Substitution permitted.[facility] [id number] [facility] ; [place] [address]. .ibuprofen 800 mg tablet Take 1 tablet every eight hours for 10 days -- for hip pain/groin strain. Dhjwlszq56 tablet. Refills: 0. Substitution permitted.Pharmacy - [facility] - [id number] [facility] ; [place] [address]. .Understanding of the discharge instructions verbalized by patient. Expected course of injury, dischargeinstructions, activity level, prescriptions x1, follow-up appointment and risks and benefits of tr eatmentreviewed with patient and understanding verbalized. Agrees to plan of care.Follow-[facility] with: [facility], , , [address] [place] [address], , [place], [address] Follow up in three days even if well. Call for the next available appointment. Reason for referral:evaluation and recommend MRI R hip/groin region if symptoms persist. ADDITIONAL INFORMATIONGroin Strain (Adult)A groin strain is a stretching or partial tearing of the muscle in the lower belly (abdomen) or upper 2 General Instructions [facility] Emergency Department [address] [place] [address] Phone #: ext- [phone] 05/05/2020 10:55 Patient: JOSLYN MENDOZA Sex: F : 1995 Age: 24ythigh. This may happen because of too much coughing, heavy lifting, or active sports. The pain maylast for several days or weeks, depending on how bad the stretch or tear is. It will generally get betterwith rest, ice, and anti-inflammatory medicines.A groin strain can lead to a groin hernia. This is also called an inguinal hernia. A hernia is a completetear of the abdominal muscle. This allows fat or the intestines to bulge out and create a visible bumpjust above the thigh crease. This is a more serious problem and may need surgery to repair it. Whenyou lie down, the bump should get smaller or disappear completely. If it doesn't, and you are not ableto flatten it with your hand, you need medical attention right away.Home care Don't do any heavy lifting, straining, or any activities that cause groin pain. You may use qatt-iee-rphdkof pain medicine to control pain, unless another pain medicine was prescribed. If you have chronic liver or kidney disease or ever had a stomach ulcer or GI (gastrointestinal) bleeding, talk with your healthcare provider before using these medicines.Follow-up careFollow up with your healthcare provider, or as advised. Make an appointment with your healthcareprovider if you develop a bump in the area of the groin strain.When to seek medical adviceCall your healthcare provider right away if any of these occur: Increasing pain in the area of the groin strain Tender bump just above the groin crease that does not flatten when you lie down or press on it Overall abdominal swelling or pain Fever of 100.4F (38C) or above lasting for 24 to 48 hours Chills Repeated vomiting Pain that moves to the lower right abdomen, just below the waistline, or spreads to the back 5471-8074 [employer]. [address] [place] [address]. All rights reserved. This information is not intended as asubstitute for professional medical care. Always follow your healthcare professional's instructions.Bladder Infection, Female (Adult) 3 General Instructions [facility] Emergency Department [address] [place] [address] Phone #: ext- [phone] 05/05/2020 10:55 Patient: JOSLYN MENDOZA Sex: F : 1995 Age: 24yUrine is normally doesn't have any bacteria in it. But bacteria can get into the urinary tract from theskin around the rectum. Or they can travel in the blood from elsewhere in the body. Once they are inyour urinary tract, they can cause infection in the urethra (urethritis), the bladder (cystitis), or thekidneys (pyelonephritis).The most common place for an infection is in the bladder. This is called a bladder infection. This isone of the most common infections in women. Most bladder infections are easily treated. They arenot serious unless the infection spreads to the kidney.The phrases "bladder infection," "UTI," and "cystitis" are often used to describe the same thing. Butthey are not always the same. Cystitis is an inflammation of the bladder. The most common cause ofcystitis is an infection.SymptomsThe infection causes inflammation in the urethra and bladder. This causes many of the symptoms.The most common symptoms of a bladder infection are: Pain or burning when urinating Having to urinate more often than usual Urgent need to urinate Only a small amount of urine comes out Blood in urine 4 General Instructions [facility] Emergency Department [address] [place] [address] Phone #: ext- [phone] 05/05/2020 10:55 Patient: JOSLYN MENDOZA Sex: F : 1995 Age: 24y Abdominal discomfort. This is usually in the lower abdomen above the pubic bone. Cloudy urine Strong- or bad-smelling urine Unable to urinate (urinary retention) Unable to hold urine in (urinary incontinence) Fever Loss of appetite Confusion (in older adults)CausesBladder infections are not contagious. You can't get one from someone else, from a toilet seat, orfrom sharing a bath.The most common cause of bladder infections is bacteria from the bowels. The bacteria get onto theskin around the opening of the urethra. From there, they can get into the urine and travel up to thebladder, causing inflammation and infection. This usually happens because of: Wiping improperly after urinating. Always wipe from front to back. Bowel incontinence Procedures such as having a catheter inserted Older age Not emptying your bladder. This can allow bacteria a chance to grow in your urine. Dehydration Constipation Sex Use of a diaphragm for co ntrolTreatmentBladder infections are diagnosed by a urine test. They are treated with antibiotics and usually clear upquickly without complications. Treatment helps prevent a more serious kidney infection. 5 General Instructions [facility] Emergency Department [address] [place] [address] Phone #: ext- [phone] 05/05/2020 10:55 Patient: JOSLYN MENDOZA Sex: F : 1995 Age: 24yMedicinesMedicines can help in the treatment of a bladder infection: Take antibiotics until they are used up, even if you feel better. It is important to finish them to make sure the infection has cleared. You can use acetaminophen or ibuprofen for pain, fever, or discomfort, unless another medicine was prescribed. If you have chronic liver or kidney disease, talk with your healthcare provider before using these medicines. Also talk with your provider if you've ever had a stomach ulcer or gastrointestinal bleeding, or are taking blood-thinner medicines. If you are given phenazopydridine to reduce burning with urination, it will cause your urine to become a bright orange color. This can stain clothing.Care and preventionThese self-care steps can help prevent future infections: Drink plenty of fluids to prevent dehydration and flush out your bladder. Do this unless you must restrict fluids for other health reasons, or your doctor told you not to. Proper cleaning after going to the bathroom is important. Wipe from front to back after using the toilet to prevent the spread of bacteria. Urinate more often. Don't try to hold urine in for a long time. Wear loose-fitting clothes and cotton underwear. Avoid tight-fitting pants. Improve your diet and prevent constipation. Eat more fresh fruit and vegetables, and fiber, and less junk and fatty foods. Avoid sex until your symptoms are gone. Avoid caffeine, alcohol, and spicy foods. These can irritate your bladder. Urinate right after intercourse to flush out your bladder. If you use control pills and have frequent bladder infections, discuss it with your doctor.Follow-up careCall your healthcare provider if all symptoms are not gone after 3 days of treatment. This is especiallyimportant if you have repeat infections.If a culture was done, you will be told if your treatment needs to be changed. If directed, you cancall to find out the results. 6 General Instructions [facility] Emergency Department [address] [place] [address] Phone #: ext- [phone] 05/05/2020 10:55 Patient: JOSLYN MENDOZA Sex: F : 1995 Age: 24yIf X-rays were done, you will be told if the results will affect your treatment.Call [phone] if any of the following occur: Trouble breathing Hard to wake up or confusion Fainting or loss of consciousness Rapid heart rateWhen to seek medical adviceCall your healthcare provider right away if any of these occur: Fever of 100.4F (38.0C) or higher, or as directed by your healthcare provider Symptoms are not better by the third day of treatment Back or belly (abdominal) pain that gets worse Repeated vomiting, or unable to keep medicine down Weakness or dizziness Vaginal discharge Pain, redness, or swelling in the outer vaginal area (labia) 4141-5992 [employer]. [address] [place] [address]. All rights reserved. This information is not intended as asubstitute for professional medical care. Always follow your healthcare professional's instructions.Crutch WalkingCrutch adjustment 7 General Instructions [facility] Emergency Department [address] [place] [address] Phone #: ext- [phone] 05/05/2020 10:55 Patient: JOSLYN MENDOZA Sex: F : 1995 Age: 24y Make sure the crutches you use are adjusted to fit you. When you stand,there should be room to fit 2 to 3 fingers between the top of the crutch and your armpit. Your elbowshould be slightly bent when holding the hand medical support specialist. When your arms hang down, the crutch handleshould be at the top of your hip.Crutch walkingPlace the crutches forward about 1 foot in front of you. The crutches should be a little farther apartthan your body. Lean your weight forward as you push down on the hand medical support specialist. Make sure yourweight is on your hands and your strong leg, not your armpits. Let your body swing forward, landingon the strong leg. Move the crutches forward again. The crutch and your injured leg should movetogether.Going up steps with no handrails(Up with the good leg) With both crutches (under each armpit) on the same step as your feet, push down on the hand medical support specialist. 8 General Instructions [facility] Emergency Department [address] [place] [address] Phone #: ext- [phone] 05/05/2020 10:55 Patient: JOSLYN MENDOZA Sex: F : 1995 Age: 24y Balancing with very light pressure on the weak leg, let your hands support your weight. Raise your strong leg onto the next higher step. Transfer all your weight to your strong leg (still bent). Move the crutches up to the next step, next to your strong leg. Keep your weight evenly balanced on the two crutches and your strong leg. Straighten your strong knee as you raise your weak leg up to the next step.Going down steps with no handrails(Down with the bad leg) With both crutches (under each armpit) on the same step as your feet, push down on the hand medical support specialist. Keep your weight evenly balanced on the two crutches and your strong leg. Bend your strong knee as you lower your weak leg down to the next step. Let your strong leg support you (still bent) as you move the crutches down next to the weak leg. Transfer your weight to your hands. Balance with very light pressure on your weak leg as you lower your strong leg next to your weak legGoing up steps with handrails(Up with the good leg) Face the stairs, holding the handrail with one hand. Place both crutches under your armpit on the opposite side. Push down on the hand medical support specialist. Balancing with very light pressure on the weak leg, let your hands support your weight. Raise your strong leg onto the next higher step. Transfer all your weight to your strong leg (still bent) as you move the crutches up (while holding on to the handrail) to the next step next to the strong leg. Keep your weight evenly balanced on the handrail, the crutches (still under the same armpit opposite the handrail), and your strong leg. Straighten your strong knee as you raise the weak leg up to the next step.Going down steps with handrails(Down with the bad leg) Face the stairs, holding the handrail with one hand. Place both crutches under your armpit on 9 General Instructions [facility] Emergency Department [address] [place] [address] Phone #: ext- [phone] 05/05/2020 10:55 Patient: JOSLYN MENDOZA Sex: F : 1995 Age: 24y the opposite side. Push down on the hand medical support specialist. Balance your weight evenly on the crutches, handrail, and your strong leg. Then bend your strong knee as you lower the weak leg down to the next step. Let the handrail and your strong leg support you (still bent) as you move the crutches down alongside the weak leg. While holding on to the handrail and crutches (under the same armpit on the other side), transfer your weight to your hands, balancing with very light pressure on the weak leg as you lower your strong leg alongside your weak legTip: If you are worried about falling or you feel unsteady, try sitting when going up or down stairsi [facility]. Sit on the bottom step and keep your injured leg out in front of you. Hold your crutches flatagainst the stairs. Then slide up to the next step on your bottom. Use your free hand and good leg forsupport. Face the same way when going down stairs. 3364-1812 [employer]. [address] [place] [address], [place] [address]. All rights reserved. This information is not intended as asubstitute for professional medical care. Always follow your healthcare professional's instructions. You have been given the following additional information: Groin Strain Bladder Infection, Female (Adult) Crutch Walking No strenuous activity until better. No weight bearing on right leg for five days.(Electronically signed by KEESHA Ram 05/05/2020 15:27) Name Value Range Interpretation Code Description Data Fariba rce(s) Supporting Document(s) ID Date Data Source [id number] 05/05/2020 11:04:00 AM EDT [facility] 1 Clinical Report - Nurses [facility] Emergency Department [address] [place] [address] Phone #: ext- [phone] 05/05/2020 10:55 Patient: JOSLYN MENDOZA Sex: F : 1995 Age: 24yTRIAGEArrived by private vehicle. Historian: patient. Unaccompanied.Triage time: 10:57 05/05/2020. Acuity: LEVEL 4.Chief Complaint: RIGHT LOWER EXTREMITY PAIN. Location of symptoms- right hip. LEFT LOWEREXTREMITY PAIN. Location of symptoms- left hip.Alert. No acute distress.No injury occurred. Onset. (1 week ago). ( Pt states she has had "problems with my hips for about ayear, year and a half" but now she is getting very sharp pains and when she walks she feels as if it is boneon bone. Pt has been seen for this in the past and was placed on a profile. Pt has had an xray once whenit started, no imaging since. Pt has done PT in the past. 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 Sepsis Screen negative. No suspected or confirmed signs ofinfection present. (11:02 05/05/2020). --11:02 05/05/20 Jenny Henry R.N.10:57 05/05/20. BP: 129/81. MAP: 97. HR: 67. RR: 18. O2 saturation: 97% on room air. Temp: 97 F(oral). Pain level now: 04/13. --11:02 05/05/20 Jenny Henry R.N.Weight: 69.8 kg stated. Height/Length: 64 inches Per Patient. BMI: 26.4. --10:56 05/05/20 Jenny Henry R.N.MedicationsNone. --11:01 05/05/20 Jenny Henry R.N.AllergiesNo Known Drug Allergy. --11:01 05/05/20 Jenny Henry R.N.PROBLEMS:Hip pain. --11:01 05/05/20 Jenny Henry R.N.Medication/allergy information source: the patient. --11:02 05/05/20 Jenny Henry R.N.ADDITIONAL SURGERIES:no known surgeries.History 2 Clinical Report - Nurses [facility] Emergency Department [address] [place] [address] Phone #: ext- [phone] 05/05/2020 10:55 Patient: JOSLYN MENDOZA Sex: F : 1995 Age: 24y PAST MEDICAL HX: Tetanus status: up-to-date. Immunizations: up-to-date. Last normal menstrual period- 04/28/20. SOCIAL HX: Current every day smoker (Pt vapes). No alcohol use or drug use. He was offered HIV testing but declined. Patient education was provided. He was offered hepatitis C testing but declined. Patient education was provided. ( COVID screen negative). He has not traveled outside the [place] Infectious disease exposure: No infectious disease exposure. Patient is not a known carrier of tuberculosis, hepatitis, HIV, MRSA or VRE. Patient is not a known carrier of CRE. SELF HARM ASSESSMENT: Self harm assessmen t was performed. The patient answered "no" to the question(s) "Do you have thoughts of harming or killing yourself?" and "Do you have a plan for harming or killing yourself?". ABUSE ASSESSMENT: Abuse assessment. The patient had positive responses to the question(s) "Do you feel safe in your home?". No suspicion of abuse. No report of abuse. NUTRITIONAL RISK ASSESSMENT: The nutritional risk assessment revealed no deficiencies. LEARNING NEEDS ASSESSMENT: The learning needs assessment revealed no barriers. FALL RISK ASSESSMENT: Fall risk assessment completed. No risk factors identified. FUNCTIONAL ASSESSMENT: Functional assessment performed: mobility impairment present- this mobility impairment is an ongoing problem. SKIN INTEGRITY ASSESSMENT: Skin integrity risk assessment completed. No skin integrity risk identified. --11:02 05/05/20 Jenny Henry R.N. Interventions Identification band on patient. --11:02 05/05/20 Jenny Henry R.N.PHYSICAL ASSESSMENTEXTREMITIES: Right hip: tenderness. --11:27 05/05/20 Wolfgang Khan R.N.NURSING PROGRESS NOTESPatient transported to radiology by wheelchair with tech. --11:51 05/05/20 Wolfgang Khan R.N. Reassurance given to the patient. Bed placed in lowest position. --12:29 05/05/20 Wolfgang Khan R.N.DISPOSITION / DISCHARGE No learning barriers present. Written instructions provided in Ch[place]. The patient was discharged by the physician web production assistant. She was discharged home. She left ambulatory and via private vehicle. Patient driving. --13:22 05/05/20 Wolfgang Khan R.N. 13:21 05/05/20. BP: 117/78. MAP: 91. HR: 67. RR: 18. O2 saturation: 100%. Temp: 98.3 F. Pain level 3 Clinical Report - Nurses [facility] Emergency Department [address] [place] [address] Phone #: ext- [phone] 05/05/2020 10:55 Patient: JOSLYN MENDOZA Sex: F : 1995 Age: 24y now: 09/13. --13:22 05/05/20 Wolfgang Khan R.N. Departure time: 13:22 05/05/2020. --13:22 05/05/20 Wolfgang Khan R.N.Locked/Released at 05/05/2020 13:22 by Wolfgang Khan R.N. Name Value Range Interpretation Code Description Data Fariba rce(s) Supporting Document(s) ID Date Data Source [id number] 05/05/2020 11:04:00 AM EDT [facility] 1 Clinical Report - Physicians/Mid Levels [facility] Emergency Department [address] [place] [address] Phone #: ext- [phone] 05/05/2020 10:55 Patient: JOSLYN MENDOZA Sex: F : 1995 Age: 24y Time Seen: 11:26 05/05/2020. Arrived- By private vehicle. Historian- patient. Disposition decision: 12:57 05/05/2020.HISTORY OF PRESENT ILLNESS Chief Complaint: HIP INJURY. The injury occurred about 1 years ago. ( Pt states worsening R hip pain x 1 yr, states recently in field [place] and stepped in alot of holes/uneven ground and R hip pain now worse. Also states she has had increased urination and burning with urination. No fever, abd pain or NV.). Occurred at work. The patient complains of moderate pain. No blow to the head, neck pain, loss of consciousness or seizure. Not dazed.REVIEW OF SYSTEMSLast normal menstrual period- . Denies current . No numbness, hearing loss,headache, loss of vision or chest pain. No depression, weakness, abdominal pain, nausea or difficultybreathing. No bladder dysfunction, laceration, fever or vomiting. Has not recently been ill.PAST HISTORYSee nurses notes. Tetanus immunization status is up-to-date. Problems: Hip pain. Additional Surgeries: no known surgeries. Medications: None. Allergies: No Known Drug Allergy.SOCIAL HISTORYSmoker- current status unknown (vapes). No alcohol use or drug use. No recent travel.ADDITIONAL NOTESThe nursing notes have been reviewed with agreement regarding the chief complaint, HPI, ROS, PMH andpatient medications and allergies.PHYSICAL EXAMVital Signs: 05/05/2020 10:57 BP: 129/81. MAP: 97. HR: 67. RR: 18. O2 saturation: 97% on room air.Temp: 97 F. Pain level now: 04/13. Have been reviewed as normal and appear to be correct. Blood 2 Clinical Report - Physicians/Mid Levels [facility] Emergency Department [address] [place] [address] Phone #: ext- [phone] 05/05/2020 10:55 Patient: JOSLYN MENDOZA Sex: F : 1995 Age: 24y pressure normal. Mean arterial pressure- normal. Heart rate normal. Respiratory rate normal. Temperature normal. Oxygen saturation normal. Appearance: Alert. Oriented X3. No acute distress. Head: Head non-tender. No swelling of head. Eyes: Pupils equal, round and reactive to light. EOM intact. ENT: No dental injury. Pharynx normal. Neck: Painless ROM. Non-tender. CVS: Heart sounds normal. Pulses normal. Respiratory: Painless inspiration. Breath sounds normal. Chest nontender. Abdomen: No visible injury. Soft and nontender. Bowel sounds normal. No organomegaly. No mass. Femoral pulses equal. Back: No tenderness. ROM normal. : area: located in the. (R anterior groin). Skin: Skin intact. Skin warm and dry. Normal skin color. Normal skin turgor. Extremities: Normal inspection. Soft tissue tenderness present. Pelvis stable. Right hip: mild tenderness. No lower extremity edema. Neuro: Oriented X 3. No motor deficit. No sensory deficit. Reflexes normal.LABS, X-RAYS, AND EKGPelvis X-ray: No fracture. Views: portable AP. Technique: good. The X-rays were independentlyviewed by me and interpreted by the radiologist and contemporaneously by me. Interpretation time: 12:.Rt Hip X-ray: (NAD). Views: 2 view hip series. Technique: good. The X-rays were independentlyviewed by me and interpreted by the radiologist and contemporaneously by me. Interpretation time: 12:101.Lt Hip X-ray: No fracture. Normal alignment. No bony lesion, air in the soft tissue or foreign body. Softtissues normal. Joint spaces normal. Technique: good. The X-rays were independently viewed by meand interpreted by the radiologist and contemporaneously by me. Interpretation time: 12:10 05/05/2020.Laboratory Tests: Laboratory tests have been ordered, with results reviewed and considered in themedical decision making process. Urinalysis: (PHIL: 05/05/2020 11:50) ( MsgRcvd 05/05/2020 12:29) Final results Test Result Flag Units (Reference) URINALYSIS URINALYSIS SOURCE R COLOR yellow (NORMAL: Yello CLARITY hazy (NORMAL: Clear SPEC GRAVITY 1.005 (1.001 - 1.030 pH 7 (5 - 9) GLUCOSE NORM (NORMAL: Negat BILIRUBIN NEG (NORMAL: Negat KETONE NEG (NORMAL: Negat PROTEIN 15 (NORMAL: Negat NITRITE NEG (NORMAL: Negat BLOOD 150 A (NORMAL: Negat LEUK EST 500 A (NORMAL: Negat UROBILINOGEN NOR (less than 1.0 MICROSCOPIC See Below 3 Clinical Report - Physicians/Mid Levels [facility] Emergency Department [address] [place] [address] Phone #: ext- [phone] 05/05/2020 10:55 Patient: JOSLYN MENDOZA Sex: F : 1995 Age: 24y WBC TNTC A (NORMAL: NONE RBC 7 - 10 A (NORMAL: NONE EPITHELIAL MODERATE A (NORMAL: NONE BACTERIA 1+ SMALL (NORMAL: NONE.PROGRESS AND PROCEDURESDisposition: Discharged home in good and improved condition.Discharge decision based on the following: patient's condition is improved; patient is ambulatory; patient isactive; patient's pain is controlled; patient's exam is improved; improving condition on repeat evaluation;social support is adequate; transportation is available; follow-up is available; clinical impression isconsistent with outpatient treatment.CLINICAL IMPRESSION Muscle strain of the right thigh (R groin). Acute urinary tract infection with cystitis and hematuria. Not associated with indwelling catheter or obstruction.INSTRUCTIONS Use crutches for five days. No strenuous activity until better. No weight bearing on right leg for five days. Warnings: GENERAL WARNINGS: Return or contact your physician immediately if your condition worsens or changes unexpectedly, if not improving as expected, or if other problems arise. Specifically return if pain, vomiting, bleeding, breathing difficulty or fever. Prescription Medications: Cipro 500 mg tablet Take 1 tablet twice a day for 7 days -- for UTI. Dispense 14 tablet. Refills: 0. Substitution permitted. Pharmacy - [facility] - [id number] ; [place] [address]. . ibuprofen 800 mg tablet Take 1 tablet every eight hours for 10 days -- for hip pain/groin strain. Dispense 30 tablet. Refills: 0. Substitution permitted. [facility] - [address] [facility] ; [place] [address]. . Understanding of the discharge instructions verbalized by patient. Expected course of injury, discharge instructions, activity level, prescriptions x1, follow-up appointment and risks and benefits of treatment reviewed with patient and understanding verbalized. Agrees to plan of care. 4 Clinical Report - Physicians/Mid Levels [facility] Emergency Department [address] [place] [address] Phone #: ext- [phone] 05/05/2020 10:55 Patient: JOSLYN MENDOZA Sex: F : 1995 Age: 24y Follow[facility] with: [facility], , , [address] [place] [address], , [place], [address] Follow up in three days even if well. Call for the next available appointment. Reason for referral: evaluation and recommend MRI R hip/groin region if symptoms persist.(Electronically signed by KEESHA Ram 05/05/2020 15:27) Name Value Range Interpretation Code Description Data Fariba rce(s) Supporting Document(s) ID Date Data Source [id number] 05/08/2020 03:42:00 PM EDT [facility] Name Value Range Interpretation Code Description Data Fariba rce(s) Supporting Document(s) CULTURE URINE [facility] _CULTURE URINE_$$[id number]$$[id number]$$[id number]$$[id number]$$[id number]$$[id number]$$[id number]$$674619$$801949$$ 570830$$492958$$642535$$482648$$917020$$020565$$077015$$703338$$115430$$552450$$ 375317$$768370$$888153$$383345$$700789$$705632$$[id number]$$[id number] -- Continued on next page --Patient: REJI Monaco Order: [id number] Page 2Culture: CULTURE URINE Status: Final ==== -- Continued on next page --Patient: REJI Monaco Order: [id number] Page 2Culture: CULTURE URINE Status: Prelim =====$$[id number]$$[id number] DATE/TIME: 05/08/2020 15:06Culture: CULTURE URINE Status: FinalIsolate 1 Escherichia coli Flag: A . . . . . . .15,000 Colonies/mLCefazolin <=4 ug/mLCefazolin with an KAYLEE <=16 predicts susceptibility to the oral agentscefaclor, cefdinir, cefpodoxime, cefprozil, cefuroxime, cephalexin,and loracarbef when used for therapy of uncomplicated urinary tractinfections due to E. coli, Klebsiella pneumoniae, and Proteusmirabilis. Previous result entered on 05/07/2020 03:15 ET Microbiological testing to rule out the presence of possible pathogensis in progress.Urine Culture,Comprehensive: V6Pwnnqaothiy coli Flag: APatient: REJI Monaco Order: [id number] Page 3Culture: CULTURE URINE Status: Final ====ISOLATE 1 Escherichia coli Isolate 1Antibiotic KAYLEE IntUnits ug/mL ----Amoxicillin/Clavulanic Acid S S . . . . . .20-8Ampicillin S S . . . . . .28-1Cefepime S S . . . . . .6644-9Ceftriaxone S S . . . . . .141-2Cefuroxime S S . . . . . .145-3Ciprofloxacin S S . . . . . .185-9Ertapenem S S . . . . . .39081-6Jmrdilxems S S . . . . . .267-5Imipenem S S . . . . . .279- 0Levofloxacin S S . . . . . .64856-3Purldojsb S S . . . . . .6652-2Nitrofurantoin S S . . . . . .363-2Piperacillin/Tazobactam S S . . . . . .412-7Tetracycline R R . . . . . .496-0Tobramycin S S . . . . . .508-2Trimethoprim/Sulfa S S . . . . . .516-5P1 Test performed by: [facility] Kevyn [facility] #: [id number] [address] [place] [address] [address] [id number] [facility] [id number] Director : Reji Reeves MD NPI #:Huc : 05/08/200634.XMT.SENT REF [id number].XMT.SENT REF ID Date Data Source [id number] 05/05/2020 12:28:00 PM EDT [facility] Name Value Range Interpretation Code Description Data Fariba rce(s) Supporting Document(s) [facility] COLOR yellow NORMAL: Yellow [facility] CLARITY hazy NORMAL: Clear [facility] Specific gravity of Urine by Test strip 1.005 1.001 - 1.030 [facility] pH 7 5 - 9 [facility] Glucose [Mass/volume] in Urine by Test strip NORM NORMAL: Negat [facility] Bilirubin.total [Presence] in Urine by Test strip NEG NORMAL: Negative [facility] Ketones [Presence] in Urine by Test strip NEG NORMAL: Negative [facility] Protein [Mass/volume] in Urine by Test strip 15 NORMAL: Negat [facility] Nitrite [Presence] in Urine by Test strip NEG NORMAL: Negative [facility] BLOOD 150 NORMAL: Negative [facility] Leukocyte esterase [Presence] in Urine by Test strip 500 KARLA L: Negative [facility] Urobilinogen [Mass/volume] in Urine by Test strip NOR less vale n 1.0 mg/dL [facility] MICROSCOPIC See Below [facility] WBC TNTC NORMAL: NONE SEEN A [facility] Erythrocytes [#/volume] in Urine by Test strip 7 - 10 NORMAL: NON E SEEN A [facility] EPITHELIAL MODERATE NORMAL: NONE SEEN A [facility] Bacteria [Presence] in Urine sediment by Light microscopy 1+ SMALL NORMAL: NONE SEEN [facility] Procedure Social History Code Duration Value Status Description Data Source(s ) Smoking 07/15/2020 12:00:00 AM EST Never smoker completed Never s radha CHARTMAKER ([facility]) Vital Signs ID Date Data Source UNK Name Value Range Interpretation Code Description Data Source(s) Inhaled oxygen concentration 21 % 21 % CHARTMAKER ([facility]) Oxygen saturation in Arterial blood by Pulse oximetry 99 % 99 % CHARTNHKER ([facility]) Body mass index (BMI) [Ratio] 25.68064478914 kg/m2 25.27047998703 kg/m2 CHARTMAKER ([facility]) Body weight 150 [lb_av] 150 [lb_av] CHARTMAKER ([facility]) Body height 64 [in_i] 64 [in_i] CHARTMAKER ([facility]) Diastolic blood pressure 72 mm[Hg] 72 mm[Hg] CHARTMAKER ([facility]) Systolic blood pressure 110 mm[Hg] 110 mm[Hg] C HARTMAKER ([facility]) Respiratory rate 16 /min 16 /min CHARTMAK ER ([facility]) Heart rate 55 /min 55 /min CHARTMAKER ([facility]) Body temperature 97.2 [degF] 97.2 [degF] CHARTTone ROSARIO ([facility])
--- OUTSIDE RECORDS SUMMARY | 2020-09-30 07:35 | CCD ---
Author Author [facility] Organization [facility] Address [address] [place], [place] [address] Phone Care Team Providers Care Air Pollution Auditor Name Role Phone SHWETA ABDALLA Unavailable Allergies, Adverse Reactions, Alerts No Known Drug Allerg ies 07/15/2020 Medications * Continue: * SHWETA THAO * Macrobid 100 mg capsule , Take 1 capsule orally Twice a day 07/15/2020 * Discontinued: * SHWETA THAO * No Active Medications 07/15/2020 Problems Amenorrhea, unspecified (N91.2) 07/15/20 20 Urinary tract infection, site not specif ied (N39.0) 07/15/2020 Dysuria (R30.0) 07/15/2020 Results Leukocytes: Large 07/15/2020 Nitrite: Negative 07/15/2020 Urobilinogen: Negative 07/15/2020 Protein: Negative 07/15/2020 pH: 7.0 07/15/2020 Blood (Urine): Hemol Trace 07/15/2020 Specific [place]: 1.015 07/15/2020 Ketone: Negative 07/15/2020 Bilirubin: Negative 07/15/2020 Glucose: Negative 07/15/2020 Chief Complaint/Reason for Visit DysuriaUrinary tract infectionStart Macr obidSend culture menstrual period is lateHCG negative possible UTI Procedures Performed and Ordered Today * URINALYSIS NONAUTO W/O SCOPE 07/15/2020 * URINE TEST 07/15/2020 * MED SERV, KEVIN/WKEND/HOLIDAY 07/15/2020 * * Lab: URINE CULTURE 07/15/2020 0949 07/15/2020 Vital signs Body Temperature: Heart Rate: Respiratory Rate: BP: Height: Weight: BMI: O2 Percentage BldC Oximetry : Inhaled Oxygen Concentration: 97.2F 07/15/2020 55 beats per minute 07/15/2020 16 breaths per minute 07/15/2020 110 /72 mmHg 07/15/2020 5ft, 4in 07/15/2020 150lbs 0 25.745 07/15/2020 99% 07/15/2020 21% 07/15/2020 Immunizations Social History Smoking Status: Never smoker. 07/15/2020 Reason for Referral Functional Status Plan of Treatment Procedures Scheduled: URINE CULTURE 07/15/2020 Appointments Schedul ed: July 042019, 9:30 AM, SHWETA THAO Instructions: <Follow up with primary care> Consider using a barrier method for control while on antibiotics as antibiotics may inhibit the effectiveness of oral contraceptives. Return if symptoms worsen We will call with lab and/or xray results When taking antibiotics, also take probiotics. Payers Insurance Policy Type Po licy ID Relation Subscriber Expi ration For Life Commercial Insurance [id number] Melchor MENDOZA Encounters OFFICE/OUTPATIENT SIT, NEW 07/15/2020 Diagnoses Amenorrhea, unspecified Urinary tract infection, site not specified Dysuria
--- OUTSIDE RECORDS SUMMARY | 2020-09-30 07:35 | CCD ---
Author Author Karl MONTEMAYOR (6.0)JOSLYN [facility] Address Unknown Phone Unavailable Care Team Providers Care Shipbuilding Draftsperson Name Role Phone NONE, NONE Unavailable Unavailable Naila [place] Unavailable Diana Costa Unavailable Allergies and Adverse Reactions Allergen Qualifier Severity Reaction(s) Comments No Known Drug Allergy Problems Problem Onset Date Resolved Date Status Comments No information available Hospital Admission Diagnosis Admission Diagnosis Onset Date Resolved Date Status Comment s No information available Medications Home Medications Details None Medications Administered Administered Medications Route Dose Bolus/Duration Rate/Du ration Additive/Diluents/Constituents Location Comments Date/Time No information available Hospital Discharge Medications Hospital Discharge Prescribed Medication None Procedures Procedure Date Performed Comments Functional Status Functional and Cognitive Assessment Documentation Date Cond ition Status No impairments noted 07/23/2020 Active Immunizations Medication Dose/Units Lot# Exp. Date Food Services Coordinator Name Given No information available Results , URINE (PHIL: 07/23/2020 16:03) [facility] Final Results Test Result Flag Reference Range , URINE NEGATIVE NEGATIVE URINALYSIS (W/C+S IF INDICATED) (PHIL: 07/23/2020 16:03) [facility] 07/23/2020 16:13) Final Results Test Result Flag Reference Range URINE COLOR YELLOW YELLOW URINE APPEARANCE SL CLOUDY AB CLEAR URINE SPECIFIC GRAVITY 1.015 1.003-1.0 35 URINE LEUKOCYTES NEGATIVE NEGATIVE URINE NITRITE NEGATIVE NEGATIVE URINE PH 8.0 5.0-8.0 URINE PROTEIN NEGATIVE NEGATIVE mg/dl URINE GLUCOSE NEGATIVE NEGATIVE mg/dl URINE KETONES NEGATIVE NEGATIVE mg/dl URINE UROBILINOGEN 0.2 NORMAL OR <1 mg/dl URINE BILIRUBIN NEGATIVE NEGATIVE URINE OCCULT BLOOD NEGATIVE NEGATIVE WBC 0-1 0-5 hpf AMORPHOUS PRECIPITATES 3+ AB NEGATIVE hpf EPITHELIAL CELLS 2-5 0-5 hpf URINE C+S IF INDICATED PERFORMED NOT INDICATED URINE CULTURE (PHIL: 07/23/2020 18:13) (MsgRcvd 07/26/2020 04:06) Final Results Test Result Flag Reference Range URINE CULTURE SOURCE CLEAN CATCH RESULT 1 Final report No growth RN-[facility] [place] [address] [facility] [id number] US PELVIC TRANSVAGINAL (MsgRcvd 07/23/2020 18:33) Final Results Test Result Flag Reference Range PELVIC SONOGRAM Clinical History: Pelvic pain Technique: . Comparison: None. Quality assessment: Acceptable. Measurements: The uterus measures: 9.2 x 6.4 x 5.2 cm Right ovary measures: 2.7 x 2 x 1.5 cm Left ovary measures: 3.1 x 2.1 x 3 cm Endometrium: 6 mm FINDINGS: Uterus: The uterus is homogeneous in echotexture and otherwise unremarkable there is a persistent posterior uterine contraction without definitive mass. Endometrium: The endometrial stripe is not thickened. Adnexa: Complex cyst 1.6 x 1.4 cm on left Fluid: There is minimal cul-de-sac free fluid. IMPRESSION: COMPLEX CYST POSSIBLY SMALL INVOLUTING OR HEMORRHAGIC CYST ON LEFT. POSTERIOR UTERINE CONTRACTION OF UNCERTAIN ETIOLOGY WITHOUT DEFINITIVE MASS. RECOMMEND FOLLOW-UP ULTRASOUND IN 4-6 WEEKS TIME. Electronically Signed By: WILDA MCCLAIN MD Date: 07/23/2020 18:32 CBC (PHIL: 07/23/2020 18:26) (MsgRcvd 07/23/2020 18:29) Final Results Test Result Flag Reference Range WBC 10.7 4.3-10.9 x10E3/u L RBC 4.46 3.80-5.30 x10E6/ uL HEMOGLOBIN 13.5 11.8-15.8 g/dl HEMATOCRIT 39.6 35.0-47.0 % MCV 88.8 82.0-98.0 fl MCH 30.3 27.5-33.5 pg MCHC 34.1 32.0-36.0 g/dl RDW 12.1 11.5-14.5 % PLATELET COUNT 324 130-400 x10E3/uL MPV 10.4 8.6-12.6 fl SEGMENTED NEUTROPHILS 61.9 44.0-74.0 % LYMPHOCYTES 28.1 15.0-45.0 % MONOCYTES 8.5 2.0-13.0 % EOSINOPHILS 1.2 0.0-6.0 % BASOPHILS 0.3 0.0-2.0 % NEUTROPHIL ABSOLUTE 6.6 1.4-7.0 x10 E3/uL LYMPHOCYTES ABSOLUTE 3.0 1.0-3.4 x10 E3/uL MONOCYTE ABSOLUTE 0.9 0.2-1.0 x10 E3/uL EOSINOPHIL ABSOLUTE 0.1 0.0-0.5 x10 E3/uL BASOPHIL ABSOLUTE 0.0 0.0-0.2 x10 E3/uL COMPREHENSIVE W/RATIOS (PHIL: 07/23/2020 18:26) (MsgRcvd 07/23/2020 18:49) Final Results Test Result Flag Reference Range GLUCOSE 95 70-100 mg/dl BUN 13 4-18 mg/dl CREATININE, SERUM 0.89 0.50-1.10 mg/d l SODIUM 138 136-146 mmol/l POTASSIUM 3.7 3.5-5.3 mmol/l CHLORIDE 102 96-109 mmol/l CARBON DIOXIDE 25 20-32 mmol/l ALBUMIN 4.2 3.5-5.0 g/dl PROTEIN, TOTAL 7.9 6.4-8.2 g/dl CALCIUM 9.2 8.4-10.4 mg/dl ALKALINE PHOSPHATASE 49 10-118 U/l SGOT (AST) 18 3-40 U/l SGPT (ALT) 9 7-50 U/l BILIRUBIN, TOTAL 0.27 L 0.30-1.20 mg/dl BUN/CREATININE RATIO 14.6 6.0-20.0 GLOBULIN 3.7 H 2.3-3.5 g/dl ANION GAP 11.0 7.0-16.0 mmol/l OSMOLALITY (CALCULATED) 276 L 280-300 mos/kg A/G RATIO 1.1 1.0-2.0 LIPASE (PHIL: 07/23/2020 18:26) (MsgRcvd 07/23/2020 18:49) Final Results Test Result Flag Reference Range LIPASE 42 1-64 U/L EGFR (CALCULATED) (PHIL: 07/23/2020 18:26) (MsgRcvd 07/23/2020 18:49) Final Results Test Result Flag Reference Range EGFR 91 >59 mL/min/1.73m2 EGFR, -CYMRAES 105 >59 mL/min/1.73m2 Note: Persistent reduction for 3 months or more in an eGFR <60 mL/min/1.73m2 defines CKD. Patients with eGFR values >=60 mL/min/1.73m2 may also have CKD if evidence of persistent proteinuria is present. Additional information may be found at [email or web address].org/professionals/kdoqi. Social History Social History Element Description Effective Dates Sex Female 1995 Smoking never smoker Unknown Vital Signs * Weight: 68.0 kg (150 lb) stated at 07/23/2020 3:51:00 PM * Height: 162.5 cm (64 inches) Per Patient at 07/23/2020 3:51:00 PM * BMI (Body Mass Index): 25.8 kg/m2 at 07/23/2020 3:51:00 PM Date/Time Blood Pressure Heart Rate Respiratory Rate Temperature O2 Saturation 07/23/2020 3:51:00 PM 115/73 mmHg 78 /minute 16 /minute 36.83 C 96 % Hospital Discharge Instructions Instruction Thank you for visiting the [facility]. You have been evaluated today by PHILIPPE LOBO, for the following condition(s): Single follicular left ovarian cyst. The following test(s) and/or procedure(s) were performed during your visit today. Laboratory Tests CBC w DiffPregnancy Urine QualComprehensive PanelUrinalysis, Culture if indicatedCulture, UrineLipase Diagnostic Studies US Pelvic Transvaginal INSTRUCTIONS Drink plenty of fluids. Warnings: Further evaluation is necessary. GENERAL WARNINGS: Return or contact your physician immediately if your condition worsens or changes unexpectedly, if not improving as expected, or if other problems arise. OTC Medications: Take acetaminophen (Tylenol) and ibuprofen (such as Advil, Motrin or Nuprin) according to label instructions. Available over the counter. Follow-up: Return to the emergency department if not better. Understanding of the discharge instructions verbalized by patient. Follow-up with: Naila Liu M.D., Family Practice, , [facility], [address] [place], [address] Follow up in one week even if well. Call for the next available appointment. Reason for referral: evaluation and treatment. Follow-up with: Diana Costa MD, OBGYN, , [facility], [address] , [place], [address] Follow up in one week even if well. Call for the next available appointment. Reason for referral: evaluation and treatment. ADDITIONAL INFORMATION Ovarian Cysts The ovaries are two small organs located on each side of a woman's uterus (womb). They are part of the female reproductive system. Ovarian cysts are sacs filled with fluid or tissue that form on or inside the ovaries. Ovarian cysts are common in women, especially during childbearing years. There are different types of cysts. Most are harmless (benign) and go away on their own. They often cause no symptoms. If symptoms do occur, they can include mild pain or pressure in the lower belly (abdomen). Cysts that are large or break (rupture) may cause more severe pain and symptoms. In these cases, you may need hospital care or treatment such as surgery. You may need more extensive treatment if a cyst causes an ovary to twist (called torsion) or if your doctor suspects your cyst is cancerous. Keep in mind that most cysts are not cancerous, however. General careTo help relieve pain, your healthcare provider may recommend using wdjz-sub-hgdayan pain medicine. If needed, your provide may prescribe stronger pain medicine.Depending on the type of cyst you have, your healthcare provider may advise taking control pills. These help shrink cysts in certain cases. They may also help prevent new cysts from forming. Be sure to take these medicines as directed if they are prescribed.Your healthcare provider may advise you to watch your symptoms over time to see if they go away or worsen. Regular ultrasound tests may also be advised. These can help check if a cyst goes away or grows in size. Follow-up careFollow up with your healthcare provider, or as advised. When to seek medical adviceCall your healthcare provider right away if any of these occur: Pain worsens or fails to get better with home treatmentFever of 100.4F (38C) or higher (or other fever amount directed by your healthcare provider)Nausea and vomitingWeakness, dizziness, or faintingAbnormal vaginal bleeding 5326-[address] [employer] [place] [address], [place] [address]. All rights reserved. This information is not intended as a substitute for professional medical care. Always follow your healthcare professional's instructions. Pelvic Pain, Uncertain Cause Pelvic pain is pain felt in the lowest part of the belly (abdomen) and between the hipbones. The pain may occur suddenly and recently (acute). Or the pain may last for 6 months or longer (chronic). There are many possible causes of pelvic pain. The pain may be due to a problem in the female reproductive system. Or, it may be due to a problem in the digestive, urinary, or musculoskeletal systems. Based on your visit today, the exact cause of your pelvic pain is not certain. Your condition does not appear to be serious at this time. But it is important for you to keep watching for any new symptoms or worsening of your condition. General careYour healthcare provider may advise a number of ways to help manage your pain. These can include: Taking uvdj-uwm-lzejavl pain medicine. Stronger pain medicine may also be prescribed, if needed.Applying heat to the pelvic area. Use a heating pad or a hot pack. Taking a hot bath may also help.Getting plenty of rest.Making certain lifestyle changes. These can include practicing good posture and getting regular exercise. Studies have shown that these changes help reduce pelvic pain in some women.Seeing a physical therapist or pain specialist. These healthcare providers can discuss other ways to manage pain with you. Follow-up careFollow up with your healthcare provider, or as advised. When to seek medical adviceCall your healthcare provider right away if any of the following occur: Fever of 100.4F or higher, or as directed by your healthcare providerPain worsens or you have sudden, severe pain or new painNausea, vomiting, sweating, or restlessnessDizziness or faintingUnusual vaginal dischargeAbnormal vaginal bleeding (especially bleeding after menopause) 5620-[address] [employer] [place] [address]. All rights reserved. This information is not intended as a substitute for professional medical care. Always follow your healthcare professional's instructions. Hospital Discharge Diagnoses Diagnosis Onset Date Resolved Date Status Comments Ovarian Cyst Active Reason For Visit uti Reason For Referral None Health Concerns Section Concern Status No information available Medical Equipments Implanted Device Manufacturing Date Expiration Date No information available Assessments Assessment You have been evaluated by PHILIPPE LOBO the following conditions: Single follicular left ovarian cyst. The following test(s) and/or procedure(s) were performed during your visit today. Laboratory Tests: CBC w Diff, Comprehensive Panel, Culture, Urine, Lipase, Urine Qual, and Urinalysis, Culture if indicated Diagnostic Studies: US Pelvic Transvaginal Goals Observation Goal Status No information available Treatment Plan Planned Care Start Date No information available Encounters Encounter Diagnosis Location Date Ovarian Cyst [facility] 07/23/2020
[2020-09-30] MEDS ORDERED: PNV-TAB2 PO (09:36)
[2020-09-30 09:51] LABS: HEMATOCRIT 40.4 % (36.0-47.0); HEMOGLOBIN 13.9 g/dl (12.0-15.5); MEAN CORPUSCULAR HEMOGLOBIN 30.4 pg (27.0-33.0); MEAN CORPUSCULAR HGB CONC 34.4 g/dl (32.0-36.5); MEAN CORPUSCULAR VOLUME 88.4 fl (80.0-96.0); PLATELET COUNT, AUTOMATED 226 10^3/uL (150-450); RED BLOOD COUNT 4.57 10^6/uL (4.00-5.40); WHITE BLOOD COUNT 6.8 10^3/uL (4.0-10.0)
[2020-09-30] MEDS: LR 1,000 ML IV SCH ×2 (10:15→18:06)
--- NOTE | 2020-09-30 10:15 | IPNPDOC ---
Text Note Date of Service The patient was seen on 09/30/20. NOTE S: 25yo presenting for care for missed AB at 13wks gestation. Denies ble eding, cramping, or signs of infection. Questions asked and answered about options for care. Reviewed counseling for medical vs. surgical management. Pt and support expressed a desire to initiate medical management with consideration to proceed with surgical management if needed. Dr. Meng consulted and agrees with plan of care. -Denies medical history -Denies [employer] hx -OB hx 2009- wk EAB D&E without complications, 2012- wk EAB D&C without complications -Surgical hx WTE, D&C, D&E -Family hx Mother-HTN O: VSS Lungc CTA RRR no edema Abdomen is non tender to palpation Cervix closed/long/midposition 600mcg cytotec placed PV A: 13wk medical management of missed AB P: CBC, T&S, UA with culture Start IV LR@125 ml/hr NPO 600 mcg cytotec PV q4hr Evaluate for change/ consult physician as indicated VS,Fishbone, I+O VS, Fishbone, I+O Laboratory Tests 09/30/20 09:28 Vital Signs Date Time Temp Pulse Resp B/P (MAP) Pulse Ox O2 Delivery O2 Flow Rate FiO2 09/30/20 08:38 99.2 68 18 115/57 (76) EZEQUIEL FARRAR CNM Sep 30, 2020 10:15
[2020-09-30] MEDS ORDERED: PROMETHAZINE INJ 25 MG/ML VIAL (J2550) IV ONE (13:15)
[2020-09-30] MEDS ORDERED: BUTORPHANOL 2 MG/ML INJ (J0595) IV ONE (13:15)
--- NOTE | 2020-09-30 14:53 | IPNPDOC ---
Text Note Date of Service The patient was seen on 09/30/20. NOTE S: 25yo with missed AB at 13wks gestation. States feeling wet with clear fluid and increased cramping. Pain improved with IV medications. States feeling sleepy. Questions asked and answered about normal expectations for progress and options for care. O: VSS Cervix ft/moderate/midposition 600mcg cytotec placed PV Clear fluid noted on the pad and minimal bloody discharge noted with exam. A: 13wk medical management of missed AB P: Continue LR@125 ml/hr NPO 600 mcg cytotec PV q4hr Evaluate for change/ consult physician as indicated Medicate for pain PRN VS,Fishbone, I+O VS, Fishbone, I+O Laboratory Tests 09/30/20 09:28 Vital Signs Date Time Temp Pulse Resp B/P (MAP) Pulse Ox O2 Delivery O2 Flow Rate FiO2 09/30/20 14:00 18 09/30/20 10:12 64 113/58 (76) 09/30/20 08:38 99.2 EZEQUIEL FARRAR CNM Sep 30, 2020 14:53
[2020-09-30] MEDS: BUTORPHANOL 2 MG/ML INJ (J0595) IV PRN (17:12)
--- NOTE | 2020-09-30 18:52 | IPNPDOC ---
Text Note Date of Service The patient was seen on 09/30/20. NOTE S: 25yo with missed AB at 13wks gestation. States passing a small amount of bleeding and feels continued cramping. States feeling comfortable with IV pain medication. Reviewed normal expectations for progress. Pt desires to continue with medical management. O: VSS Cervix 1/50/moderate 600mcg cytotec placed PV several small blood clots noted with exam noted with exam. A: 13wk medical management of missed AB P: Continue LR@125 ml/hr may eat a light meal 600 mcg cytotec PV q4hr Evaluate for change/ consult physician as indicated Medicate for pain PRN VS,Fishbone, I+O VS, Fishbone, I+O Laboratory Tests 09/30/20 09:28 Vital Signs Date Time Temp Pulse Resp B/P (MAP) Pulse Ox O2 Delivery O2 Flow Rate FiO2 09/30/20 18:08 98.6 66 18 99/56 (70) EZEQUIEL FARRAR CNM Sep 30, 2020 18:52
--- NOTE | 2020-09-30 23:19 | IPNPDOC ---
Text Note Date of Service The patient was seen on 09/30/20. NOTE S: 25yo with missed AB at 13wks gestation. States continued passing of small small clots and bleeding and feels continued cramping. States feeling comfortable with IV pain medication. Denies further questions at this time. O: VSS Cervix 1-2/50/moderate 600mcg cytotec placed PV Bloody show noted with exam noted with exam. A: 13wk medical management of missed AB P: Continue LR@125 ml/hr 600 mcg cytotec PV q4hr Evaluate for change/ consult physician as indicated Medicate for pain PRN VS,Fishbone, I+O VS, Fishbone, I+O Laboratory Tests 09/30/20 09:28 Vital Signs Date Time Temp Pulse Resp B/P (MAP) Pulse Ox O2 Delivery O2 Flow Rate FiO2 09/30/20 18:50 60 18 103/50 (67) 09/30/20 18:08 98.6 EZEQUIEL FARRAR CNM Sep 30, 2020 23:19
[2020-10-01] VITALS (8 sets, daily range): BP systolic 103–121; BP diastolic 51–74
[2020-10-01] MEDS ORDERED: PROMETHAZINE INJ 25 MG/ML VIAL (J2550) IV ONE (01:50)
[2020-10-01] MEDS: BUTORPHANOL 2 MG/ML INJ (J0595) IV PRN (01:54)
[2020-10-01] MEDS ORDERED: OXYTOCIN DRIP 30 UNITS in IV 1 EA IV SCH (07:26)
[2020-10-01] MEDS ORDERED: IBUPROFEN 800 MG TAB PO PRN (07:30)
[2020-10-01] MEDS ORDERED: IBUPROFEN 600MG TAB PO PRN (07:30)
[2020-10-01] MEDS ORDERED: ACETAMINOPHEN TAB 650MG DOSE (2X325MG) PO PRN (07:30)
[2020-10-01] MEDS ORDERED: DIBUCAINE 1% OINTMENT 30GM TOP PRN (07:30)
[2020-10-01] MEDS ORDERED: DOCUSATE SODIUM 100MG CAPSULE PO PRN (07:30)
[2020-10-01] MEDS ORDERED: METHYLERGONOVINE MALEATE 0.2 MG TAB PO PRN (07:30)
[2020-10-01] MEDS ORDERED: RHOGAM 300 MCG (1500 IU) INJ (J2790) IM SCH (07:30)
[2020-10-01] MEDS ORDERED: MEASLES,MUMPS,RUBELLA VACCINE INJ (MMR-II) (90707) SC SCH (07:30)
[2020-10-01] MEDS ORDERED: ACETAMINOPHEN 500 MG TAB PO PRN (07:30)
--- NOTE | 2020-10-01 07:53 | IPNPDOC ---
Text Note Date of Service The patient was seen on 10/01/20. NOTE S: 25yo with missed AB at 13wks gestation. States continued passing of small small clots and bleeding and feels continued cramping. States feeling comfortable with IV pain medication. O: VSS On exam something is felt in the 4cm cervix. A speculum is placed and tissue visualized in the cervix and vagina consistent with placenta. The pt bared down and passed the placenta and amniotic membrane with small bleeding. The cervix is 4cm/ soft. TAUS performed. Fetus and blood clots are visualized in the uterus. Consulted with Dr. Kelley for plan of care, transition from cytotec to 10mu IV Pitocin recommended. Plan of care discussed with the patient and consented. A: 13wk medical management of missed AB P: Continue LR@125 ml/hr 10mu pitocin iv Evaluate for change/ consult physician as indicated Medicate for pain PRN VS,Fishbone, I+O VS, Fishbone, I+O Laboratory Tests 09/30/20 09:28 Vital Signs Date Time Temp Pulse Resp B/P (MAP) Pulse Ox O2 Delivery O2 Flow Rate FiO2 10/01/20 06:43 14 10/01/20 01:56 54 103/51 (68) 09/30/20 18:08 98.6 I&O- Last 24 Hours up to 6 AM 10/01/20 06:00 Intake Total 950 ml Balance 950 ml EZEQUIEL FARRAR CNM Oct 01, 2020 07:53
--- NOTE | 2020-10-01 08:39 | IPNPDOC ---
Text Note Date of Service The patient was seen on 10/01/20. NOTE 25yo with MAB at 13+5wks admitted for medical mgmt of MAB. She has received 4 doses of cytotec 600mcg PV. Placenta had been expulsed but no fetus. She reports mild cramping pelvic pain and small amount of VB. She reports she is hungry and desires to eat. Vitals: normotensive, afebrile PE: Gen: well-appearing, resting comfortable in bed HEENT: NC/AT, airway patent and self-maintained RESP: no exaggerated respiratory effort appreciated ABD: soft, nontender, nondistended : NEFG, small amount of dark VB seen, SVE 3/50/-3 Ext: no edema TAUS: thickened hetergeneous ES measuring 3.5cm seen with retained POC. No pelvic FF seen. A/P: 25yo with MAB at 13w5d admitted for medical mgmt of MAB. Placenta expelled but no fetus or remainder of GS. Pitocin had been initiated. This was discontinued due pitocin receptors being most likely inactive at this gestational age. -Methergine 0.2mg PO now -Will allow regular diet and shower as tolerated -Continue inpatient monitoring for continued medical mgmt of MAB All questions answered. Med rec done. VS,Dai, I+O VS, Silvanae, I+O Laboratory Tests 09/30/20 09:28 Vital Signs Date Time Temp Pulse Resp B/P (MAP) Pulse Ox O2 Delivery O2 Flow Rate FiO2 10/01/20 06:43 14 10/01/20 01:56 54 103/51 (68) 09/30/20 18:08 98.6 I&O- Last 24 Hours up to 6 AM 10/01/20 06:00 Intake Total 950 ml Balance 950 ml ANTONI PEDERSEN DO Oct 01, 2020 08:39
[2020-10-01] MEDS ORDERED: PRENATAL VITAMINS CHEWABLE TABLET PO SCH (09:00)
--- NOTE | 2020-10-01 11:08 | IPNPDOC ---
Text Note Date of Service The patient was seen on 10/01/20. NOTE Patient reports her pain has resolved and her VB has decreased to spotting in nature after receiving methergine. She has not passed fetus. Discussed options, patient elects for 1 more dose of cytotec now then if no change, will allow for manual extraction of parts. Patient clinically stable at this time. Patient desires to proceed, safe to continue. VS,Fishbone, I+O VS, Fishbone, I+O Vital Signs Date Time Temp Pulse Resp B/P (MAP) Pulse Ox O2 Delivery O2 Flow Rate FiO2 10/01/20 09:08 67 18 114/74 (87) 10/01/20 08:12 98.7 I&O- Last 24 Hours up to 6 AM 10/01/20 06:00 Intake Total 950 ml Balance 950 ml ANTONI PEDERSEN DO Oct 01, 2020 11:08
--- NOTE | 2020-10-01 15:33 | REP ---
INDICATION: s/p MAB, r/o retained products. COMPARISON: None. TECHNIQUE: Real-time sonographic evaluation of pelvis performed utilizing transabdominal and endovaginal technique. FINDINGS: Uterus measures 11.1 x 7.0 x 7.7 cm. Uterus has a somewhat arcuate appearance. Variable thickness is seen throughout the endometrial echo complex, which appears somewhat heterogeneous. Maximum thickness is in the uterine body region measuring 12 mm. More superiorly on the right maximum thickness is 11 mm and on the left 9 mm. Trace endometrial fluid is seen. There appear to be blood clots in the endometrial echo complex. No hyperemic tissue is seen in the endometrial cavity. Right ovary could not be visualized. Left ovary measures 2.5 x 2.0 x 3.2 cm. There is no evidence of left ovarian torsion. No adnexal mass or free fluid is seen. IMPRESSION: Heterogeneous endometrial echo complex with probable clots. Trace endometrial fluid. No hyperemic tissue identified in the endometrial cavity to suggest retained products of conception. <Electronically signed by Saulo Valenzuela > 10/01/20 [id number]
--- NOTE | 2020-10-01 15:39 | IPNPDOC ---
Text Note Date of Service The patient was seen on 10/01/20. NOTE Patient had mild cramping but not as significant as previously. Minimal bleeding. Patient has not passed any further tissue. Vitals: normotensive, afebrile PE: GEN: well-appearing, in NAD HEENT: NC/AT, airway patent and self-maintained RESP: no exaggerated respiratory effort appreciated ABD: soft, nontender, nondistended : NEFG, speculum exam revealed cervix was now thickened and only at 1cm dilated. Ringed forceps were used to remove small amount of clots in the cervix. No parts or retained POC identified. Ext: no edema Bedside TAUS: homogeneous ES of 1.1cm seen. No retained POC or clot identified. Formal U/S: INDICATION: s/p MAB, r/o retained products. COMPARISON: None. TECHNIQUE: Real-time sonographic evaluation of pelvis performed utilizing transabdominal and endovaginal technique. FINDINGS: Uterus measures 11.1 x 7.0 x 7.7 cm. Uterus has a somewhat arcuate appearance. Variable thickness is seen throughout the endometrial echo complex, which appears somewhat heterogeneous. Maximum thickness is in the uterine body region measuring 12 mm. More superiorly on the right maximum thickness is 11 mm and on the left 9 mm. Trace endometrial fluid is seen. There appear to be blood clots in the endometrial echo complex. No hyperemic tissue is seen in the endometrial cavity. Right ovary could not be visualized. Left ovary measures 2.5 x 2.0 x 3.2 cm. There is no evidence of left ovarian torsion. No adnexal mass or free fluid is seen. IMPRESSION: Heterogeneous endometrial echo complex with probable clots. Trace endometrial fluid. No hyperemic tissue identified in the endometrial cavity to suggest retained products of conception. A/P: 25yo at 13+5wks admitted for medical mgmt of MAB now s/p several doses of cytotec, pitocin, and methergine. Pitocin, methergine, and additional dose of cytotec given due to concern for no fetus seen when placenta delivered with concern for retained POC. Re-evaluation now shows no retained POC identified. Formal U/S obtained showing arcuate uterus with homogeneous ES with no retained POC. Patient now reporting that she passed a large blood clot with gush of fluid yesterday evening and may have passed the fetus at that time. -Due to multiple exams and use of ringed forceps in the cervix/lower uterine segment to remove clot, decision made to treat uterus prophylactically with doxycycline -Patient counseled that arcuate uterus is most likely etiology for miscarriage due to avascular septum, recommend future hysteroscopy with septum resection -Patient counseled on pain/bleeding precautions -Patient meeting criteria for disposition home and desires this -Patient counseled on pelvic rest and nothing in the vagina for 2 weeks -Patient to f/u in OB clinic in 2 weeks for re-evaluation and surgical planning All questions answered. VS,Fishbone, I+O VS, Fishbone, I+O Vital Signs Date Time Temp Pulse Resp B/P (MAP) Pulse Ox O2 Delivery O2 Flow Rate FiO2 10/01/20 11:57 99.0 69 18 108/55 (72) I&O- Last 24 Hours up to 6 AM 10/01/20 06:00 Intake Total 950 ml Balance 950 ml ANTONI PEDERSEN DO Oct 01, 2020 15:18
== END 2020-10-01 17:43 | disposition home or self-care (01) | DRG 779 ==
LOC: M LDI 07:29
PROVIDERS: ADMIT Registered Nurse
PROC: 3E0P7GC Introduction of Other Therapeutic Substance into Female Reproductive, Via Natural or Artificial Opening (ICD-10-PCS; 2020-09-30)
PROC: 0UCC7ZZ Extirpation of Matter from Cervix, Via Natural or Artificial Opening (ICD-10-PCS; principal; 2020-10-01)
DX: O02.1 Missed abortion (principal); Q51.810 Arcuate uterus

== ENCOUNTER 2020-11-22 06:31 | Day surgery (SDC) | payer OTHER ==
[~2020-11-22] VITALS: Ht 162.6 cm; Wt 75.7 kg
[~2020-11-22 06:31] MED LIST: LOES1TAB7 PO; PNV-TAB2 PO
[2020-11-22] MEDS ORDERED: LR 1,000 ML IV ONE (07:00)
[2020-11-22 07:07] LABS: HEMATOCRIT 41.1 % (36.0-47.0); HEMOGLOBIN 13.8 g/dl (12.0-15.5); MEAN CORPUSCULAR HEMOGLOBIN 30.1 pg (27.0-33.0); MEAN CORPUSCULAR HGB CONC 33.6 g/dl (32.0-36.5); MEAN CORPUSCULAR VOLUME 89.7 fl (80.0-96.0); PLATELET COUNT, AUTOMATED 273 10^3/uL (150-450); RED BLOOD COUNT 4.58 10^6/uL (4.00-5.40); WHITE BLOOD COUNT 5.7 10^3/uL (4.0-10.0)
[2020-11-22 07:16] LABS: APPEARANCE, URINE HAZY (CLEAR); BACTERIA, URINE AUTO NEGATIVE (NEGATIVE); BILIRUBIN, URINE AUTO NEGATIVE (NEGATIVE); BLOOD, URINE BLOOD NEGATIVE (NEGATIVE); COLOR, URINE YELLOW (YELLOW); GLUCOSE, URINE (UA) AUTO NEGATIVE (NEGATIVE); KETONE, URINE AUTO NEGATIVE (NEGATIVE); LEUKOCYTE ESTERASE, URINE AUTO NEGATIVE (NEGATIVE); MUCUS, URINE LARGE (NEGATIVE); NITRITE, URINE AUTO NEGATIVE (NEGATIVE); PROTEIN, URINE AUTO NEGATIVE (NEGATIVE); RBC, URINE AUTO 2 /HPF (0-3); SPECIFIC GRAVITY URINE AUTO 1.026 (1.002-1.035); SQUAMOUS EPITHELIAL CELL UR AU 2 /HPF (0-6); UROBILINOGEN, URINE AUTO 0.2 mg/dL (0.0-2.0); WBC, URINE AUTO 1 /HPF (0-3)
[2020-11-22] MEDS ORDERED: ROCURONIUM BROMIDE 50 MG/5 ML VIAL As Ordered ONE (07:18)
[2020-11-22] MEDS ORDERED: propofoL 200 MG/20 ML VIAL As Ordered ONE (07:18)
[2020-11-22] MEDS ORDERED: fentaNYL 100 MCG/2 ML INJECTION (J3010) As Ordered ONE (07:20)
[2020-11-22] MEDS ORDERED: MIDAZOLAM INJ 2MG/2ML VIAL (J2250 PER 1MG) As Ordered ONE (07:21)
[2020-11-22 07:37] LABS: HCG, SERUM QUALITATIVE NEGATIVE (NEGATIVE)
[2020-11-22] MEDS ORDERED: LIDOCAINE 2% 100MG/5ML SDV (FOR ANES.) As Ordered ONE (07:48)
[2020-11-22] MEDS ORDERED: KETOROLAC 60MG 2ML VIAL As Ordered ONE (08:14)
[2020-11-22] MEDS ORDERED: SILVER NITRATE APPLICATOR As Ordered ONE (08:32)
[2020-11-22] MEDS ORDERED: LR 1,000 ML IV SCH (09:00)
[2020-11-22] MEDS ORDERED: ONDANSETRON 4MG/2ML VIAL IV PRN (09:00)
[2020-11-22] MEDS ORDERED: fentaNYL 100 MCG/2 ML INJECTION (J3010) IV PRN (09:00)
[2020-11-22] MEDS ORDERED: oxyCODONE 5MG TAB PO PRN (09:00)
[2020-11-22 10:25] VITALS: BP 148/73
--- NOTE | 2020-11-24 10:02 | ROOPDOC ---
[facility] Report Of Operation Report of Operation DATE OF PROCEDURE: 11/22/20 PREPROCEDURE DIAGNOSES: 1. Septate uterus 2. History of second trimester loss POSTPROCEDURE DIAGNOSES: 1. Septate uterus 2. History of second trimester loss PROCEDURE: 1. Operative hysteroscopy 2. Uterine septum resection SURGEON: Antoni Pedersen DO ANESTHESIA: LMA ESTIMATED BLOOD LOSS: Approximately 10 mL. URINE OUTPUT: 60mL FLUIDS: 500mL LR COMPLICATIONS: None REMARKS: Large uterine septum appreciated across uterine fundus. Normal- appearing bilateral tubal ostia. Normal-appearing endometrium without masses identified. DESCRIPTION OF PROCEDURE: The risks, benefits, indications and alternatives of the procedure were reviewed with the patient and informed consent was obtained. The patient was taken to the operating room where LMA anesthesia was obtained without difficulty. Doxycycline 100mg was given IV pre-operatively. The patient was then placed in the low lithotomy position using Bobby Stirrups. An exam under anesthesia was then performed and significant for a midline, mobile, _8_-week sized anteverted uterus with no adnexal masses/fullness appreciated. Patient was then prepped and draped in the sterile fashion and the bladder was drained using an in-and-out catheter. A sterile speculum was placed in the patients vagina and the cervix was visualized. A single tooth tenaculum was used to grasp the anterior lip of the cervix. A uterine sound was gently placed into the uterus, which sounded to 6cm. The cervix was then gently, serially dilated to a size _14_ Burmese davian dilator. The hysteroscope was first primed. The hysteroscope was then advanced through the endocervical canal under direct visualization. After distension of the uterus with warm saline, a systematic examination of the intrauterine cavity was performed. No intrauterine lesions were noted aside from a large fundal uterine septum and the normal-appearing bilateral tubal ostia. Hysteroscopic scissors were used to create a plane to open the septum horizontally across the uterine fundus until vascular tissue was obtained. Care was taken to stay clear of the tubal ostia. The procedure was completed with complete resection of the uterine septum. The single tooth tenaculum was removed from the anterior lip of the cervix. The tenaculum site was made hemostatic with silver nitrate. All instruments were then removed from the patients vagina. Hysteroscopic fluid deficit was 300ml of normal saline. The patient tolerated the procedure well. At the completion of the case the sponge and needle counts were correct x 2. The patient was awoken from anesthesia taken to the PACU in stable condition. She received Doxycycline 200mg PO prior to discharge home. ANTONI PEDERSEN DO Nov 22, 2020 09:09
== END 2020-11-22 10:44 | disposition home or self-care (01) ==
LOC: M SDC 06:31
DX: Q51.28 Other and unspecified doubling of uterus (principal); N96 Recurrent pregnancy loss; Z87.891 Personal history of nicotine dependence; Z79.899 Other long term (current) drug therapy
CPT/HCPCS: 36415; 58560; 81001; 84703; 85027; 86850; 86900; 86901; J1885; J2250; J3010